=== PATIENT | male | born 1960 | race Caucasian/White ===

== ENCOUNTER 2018-06-01 11:10 | Observation (INO) ==
[2018-06-01] MEDS ORDERED: Bisacodyl 10 MG Supp RECTAL PRN (13:11)
[2018-06-01] MEDS ORDERED: Naloxone Inj 0.4 MG/ML Vial IV.PUSH PRN (13:11)
[2018-06-01] MEDS ORDERED: Acetaminophen 325 MG Tablet PO PRN (13:11)
[2018-06-01] MEDS ORDERED: Morphine Inj 4 MG/ML Vial IV.PUSH PRN (15:00)
[2018-06-01] MEDS ORDERED: Enoxaparin Inj 40 MG/0.4 ML Syringe SQ SCH (16:00)
--- NOTE | 2018-06-01 16:26 | P.HPIM ---
History of Present Illness Primary Care Physician: UNKNOWN Chief Complaint: Abdominal pain History of Present Illness: 57-year-old white male with a history of hypertension, hypothyroidism, hyperlipidemia who we presented to the emergency room in [place] for continued 3 day history of persistent epigastric abdominal pain with bandlike radiation toward the left upper abdomen area. It is associated with mild nausea however he has not had active vomiting. He reports he has had poor appetite over the past 3 days along with previous history of constipation. He reports taking laxatives 2 days ago and had a bowel movement which showed an episode of black tarry stools. Shortly after that he had some loose stools however has not had any stools today. He has not had any recent weight loss or weight he has had previous colonoscopies in the past and most recent 2-1/2 years ago which was negative. He was actually seen in the emergency room yesterday and decided to follow-up as an outpatient however due to the persistent pain and not able to get an appointment until July he represented to the emergency room for further evaluation. He denies a history of malignancy. He does report drinking alcohol on a daily basis at least 2-3 drinks. He does not routinely take aspirin and only occasionally takes Aleve for pain. - Diagnosis (1) Abdominal mass Review of Systems All other systems reviewed negative except as stated in HPI PMFSH - History History Provided By: Patient - Medical History Medical History: Medical History (Last Reviewed 06/01/18 @ 16:19 by Gwen Preciado MD) Hypercholesteremia Hypertension Hypothyroid - Surgical History Surgical History: Surgical History (Last Reviewed 06/01/18 @ 16:19 by Gwen Preciado MD) H/O arthroscopic knee surgery H/O neck surgery - Family History Family History: Family History (Last Updated 06/01/18 @ 16:20 by Gwen Preciado MD) Father Hypertension Mother Hypertension - Social History I have reviewed the patient's Social History: Yes - Tobacco History Second Hand Smoke Exposure: Yes Smoking Status: Former smoker Tobacco Type: Cigarettes - Alcohol History How Often Do You Have a Drink Containing Alcohol: 4 or more times a week - Substance Use History Substance History: No History of Abuse - Travel History History of Recent Travel: No Recent Travel in the [place] Within the Last 8 Weeks: No Recent Travel Out of the Country Within the Last 8 Weeks: No Medications and Allergies Active Medications: Active Medications Acetaminophen (Tylenol) 650 mg PO Q6HR PRN PRN Reason: PAIN SCALE 1 TO 2 Hydrocodone Bitart/Acetaminophen ([place] 5/325) 1 tab PO Q4H PRN PRN Reason: PAIN SCALE 3 TO 5 Hydrocodone Bitart/Acetaminophen ([place] 7.5/325) 1 tab PO Q4H PRN PRN Reason: PAIN SCALE 6 TO 10 Al Hydroxide/Mg Hydroxide (Milk Of Magnesia Liq) 30 ml PO Q12H PRN PRN Reason: Mild Constipation Bisacodyl (Dulcolax Supp) 10 mg RECTAL DAILY PRN PRN Reason: SEVERE CONSITIPATION Enoxaparin Sodium (Lovenox Inj) 40 mg SQ Q24H BERNARDINO Lactulose (Lactulose Liq) 30 ml PO DAILY PRN PRN Reason: SEVERE CONSITIPATION Morphine Sulfate (Morphine Inj) 4 mg IV.PUSH Q3H PRN PRN Reason: BREAKTHROUGH PAIN Naloxone HCl (Narcan Inj) 0.4 mg IV.PUSH UNSCH PRN PRN Reason: SEE LABEL COMMENTS Ondansetron HCl (Zofran Inj) 4 mg IV.PUSH Q6H PRN PRN Reason: NAUSEA OR VOMITING Sennosides (Senokot) 17.2 mg PO Q12H PRN PRN Reason: Moderate Constipation Sodium Chloride (Ns Flush) 2 ml IV.FLUSH PRN PRN PRN Reason: FLUSH AFTER USING IV ACCESS Allergies Allergy/AdvReac Type Severity Reaction Status Date / Time No Known Allergies Allergy Verified 06/01/18 11:17 Home Medications Medication Instructions Recorded Confirmed Type amlodipine-benazepril 1 cap PO DAILY 05/31/18 06/01/18 History atorvastatin 10 mg PO DAILY 05/31/18 06/01/18 History flaxseed oil 1,000 mg PO HS 05/31/18 06/01/18 History glucosamine sulfate [Glucosamine] 1,500 mg PO HS 05/31/18 06/01/18 History levothyroxine 75 mcg PO DAILY 05/31/18 06/01/18 History minocycline 100 mg PO BID 05/31/18 06/01/18 History testosterone cypionate 200 mg IM Q2W 05/31/18 06/01/18 History Exam Narrative: GENERAL: Well-nourished well-developed white male in no acute distress SKIN: Warm and dry. HEAD: Atraumatic. Normocephalic. EYES: Pupils equal and round. No scleral icterus. No injection or drainage. ENT: No nasal bleeding or discharge. Mucous membranes pink and moist. NECK: Trachea midline. No JVD. CARDIOVASCULAR: Regular rate and rhythm. RESPIRATORY: No accessory muscle use. Clear to auscultation. Breath sounds equal bilaterally. GASTROINTESTINAL: Abdomen soft, mild generalized epigastric left upper quadrant tenderness, there is no rebound guarding nondistended. Hepatic and splenic margins not palpable. Normoactive bowel sounds MUSCULOSKELETAL: Extremities without clubbing, cyanosis, or edema. No obvious deformities. NEUROLOGICAL: Awake and alert to person place time and situation. No obvious cranial nerve deficits. Motor grossly within normal limits. Five out of 5 muscle strength in the arms and legs. Normal speech. PSYCHIATRIC: Appropriate mood and affect; insight and judgment normal. Results - Labs Labs: BMP, CBC, urinalysis within normal limits. LFTs within normal limits - Imaging CT abdomen pelvis Right lobe irregular calcified mass Midline mesentery mass Caprini VTE Risk Assessment Caprini VTE Risk Assessment: Moderate/High Risk (score >= 2) Caprini Risk Assessment Model: Point Value = 1 Point Value = 2 Point Value = 3 Point Value = 5 Age 41-60 Minor surgery BMI > 25 kg/m2 Swollen legs Varicose veins or History of unexplained or recurrent spontaneous Oral contraceptives or hormone replacement Sepsis (< 1 month) Serious lung disease, including pneumonia (< 1 month) Abnormal pulmonary function Acute myocardial infarction Congestive heart failure (< 1 month) History of inflammatory bowel disease Medical patient at bed rest Age 61-74 Arthroscopic surgery Major open surgery (> 45 min) Laparoscopic surgery (> 45 min) Malignancy Confined to bed (> 72 hours) Immobilizing plaster cast Central venous access Age >= 75 History of VTE Family history of VTE Factor V Leiden Prothrombin [id number] Lupus anticoagulant Anticardiolipin antibodies Elevated serum homocysteine Heparin-induced thrombocytopenia Other congenital or acquired thrombophilia Stroke (< 1 month) Elective arthroplasty Hip, pelvis, or leg fracture Acute spinal cord injury (< 1 month) Prophylaxis Regimen: Total Risk Factor Score Risk Level Prophylaxis Regimen 0-1 Low Early ambulation 2 Moderate Order ONE of the following: *Sequential Compression Device (SCD) *Heparin 5000 units SQ BID 3-4 Higher Order ONE of the following medications: *Heparin 5000 units SQ TID *Enoxaparin/Lovenox 40 mg SQ daily (WT < 150 kg, CrCl > 30 mL/min) *Enoxaparin/Lovenox 30 mg SQ daily (WT < 150 kg, CrCl > 10-29 mL/min) *Enoxaparin/Lovenox 30 mg SQ BID (WT < 150 kg, CrCl > 30 mL/min) AND/OR *Sequential Compression Device (SCD) 5 or more Highest Order ONE of the following medications: *Heparin 5000 units SQ TID (Preferred with Epidurals) *Enoxaparin/Lovenox 40 mg SQ daily (WT < 150 kg, CrCl > 30 mL/min) *Enoxaparin/Lovenox 30 mg SQ daily (WT < 150 kg, CrCl > 10-29 mL/min) *Enoxaparin/Lovenox 30 mg SQ BID (WT < 150 kg, CrCl > 30 mL/min) AND *Sequential Compression Device (SCD) Assessment and Plan - Assessment (1) Abdominal mass Code(s): R19.00 - Intra-abdominal and pelvic swelling, mass and lump, unspecified site Status: Acute - Plan 1. Intractable abdominal pain with underlying abdominal mesentery mass and abnormal right lobe liver mass on CTplace patient observation for continued workup with GI consultation to evaluate for EGD, colonoscopy. Pain control with IV morphine as needed. Will initiate PPI due to history of alcohol use. Check CEA, CA 19/9, alpha-fetoprotein. Further recommendations per GI. 2. Hypertensionresume amlodipine and lisinopril 3. Hypothyroidismresume Synthroid 4. Hyperlipidemia resume home statin. 5. DVT prophylaxishold Lovenox due to episode of black tarry stools until active GI bleed is ruled out. (1) Abdominal mass Qualifiers: Abdominal location: unspecified location Qualified Code(s): R19.00 - Intra- abdominal and pelvic swelling, mass and lump, unspecified site
[2018-06-01] MEDS ORDERED: Magnesium Citrate Liq 300 ML Bottle PO ONE ×2 (17:25→18:30)
--- NOTE | 2018-06-01 18:09 | P.CONGI ---
History of Present Illness Consult date: 06/30/18 Consult reason: Abnormal right lobe liver mass, abdominal mesenteric mass, epigastric abdominal pain Chief complaint: Abdominal Pain and Mass History of Present Illness: This is a 57-year-old male who had been in his usual state of health up until 3 days before admission. Patient notes an epigastric abdominal pain with a tightness and radiation into the left upper abdominal area initially patient had noted some mild nausea but states no further nausea or vomiting he did note dark melena stools approximately 3 days ago but states that that is now subsided. Patient notes a history of constipation and acute onset of bloating. He did note some laxatives a couple of days ago when the melena stools were noted. Patient denies any family history of colon cancer and states he had his last colonoscopy around the first 2015 and polypectomy. Patient is positive for alcohol on a daily basis 2-3 drinks a day, does take occasional Aleve or NSAIDs. Gastroenterology was consulted to assist with patient's uncontrolled abdominal pain. CT scan recently performed showed abdominal mesenteric mass and abnormal right lobe liver mass. Discussed with patient the need for EGD and colonoscopy which is been scheduled for in the morning. Currently pain scale 10 7 out of 10, does note some diffuse generalized abdominal pain to light palpation. Currently patient denies any dysphasia or dyspepsia <Tori Garcia - Last Filed: 06/01/18 18:00> Review of Systems All other systems reviewed negative except as stated in HPI <Tori Garcia - Last Filed: 06/01/18 18:00> [facility] - History History Provided By: Patient - Medical History Medical History: Medical History (Last Reviewed 06/01/18 @ 16:19 by Gwen Preciado MD) Hypercholesteremia Hypertension Hypothyroid - Surgical History Surgical History: Surgical History (Last Reviewed 06/01/18 @ 16:19 by Gwen Preciado MD) H/O arthroscopic knee surgery H/O neck surgery - Family History Family History: Family History (Last Updated 06/01/18 @ 16:20 by Gwen Preciado MD) Father Hypertension Mother Hypertension - Tobacco History Second Hand Smoke Exposure: No Tobacco Use In Past 30 Days: No Smoking Status: Former smoker Tobacco Type: Cigarettes - Alcohol History How Often Do You Have a Drink Containing Alcohol: 4 or more times a week - Substance Use History Substance History: No History of Abuse - Travel History History of Recent Travel: No Recent Travel in the [place] Within the Last 8 Weeks: Yes Recent Travel Out of the Country Within the Last 8 Weeks: No <Tori Garcia - Last Filed: 06/01/18 18:00> - Medical History Medical History: Medical History (Last Reviewed 06/01/18 @ 16:19 by Gwen Preciado MD) Hypercholesteremia Hypertension Hypothyroid - Surgical History Surgical History: Surgical History (Last Reviewed 06/01/18 @ 16:19 by Gwen Preciado MD) H/O arthroscopic knee surgery H/O neck surgery - Family History Family History: Family History (Last Updated 06/01/18 @ 16:20 by Gwen Preciado MD) Father Hypertension Mother Hypertension <Betty Milton - Last Filed: 06/01/18 21:46> Medications and Allergies Active Medications: Active Medications Acetaminophen (Tylenol) 650 mg PO Q6HR PRN PRN Reason: PAIN SCALE 1 TO 2 Hydrocodone Bitart/Acetaminophen ([place] 5/325) 1 tab PO Q4H PRN PRN Reason: PAIN SCALE 3 TO 5 Hydrocodone Bitart/Acetaminophen ([place] 7.5/325) 1 tab PO Q4H PRN PRN Reason: PAIN SCALE 6 TO 10 Al Hydroxide/Mg Hydroxide (Milk Of Magnesia Liq) 30 ml PO Q12H PRN PRN Reason: Mild Constipation Amlodipine Besylate (Norvasc) 5 mg PO DAILY BERNARDINO Atorvastatin Calcium (Lipitor) 10 mg PO DAILY BERNARDINO Bisacodyl (Dulcolax Supp) 10 mg RECTAL DAILY PRN PRN Reason: SEVERE CONSITIPATION Enalaprilat (Vasotec Inj) 1.25 mg IV.PUSH Q6H PRN PRN Reason: SBP > 180; DBP > 100 Lactulose (Lactulose Liq) 30 ml PO DAILY PRN PRN Reason: SEVERE CONSITIPATION Levothyroxine Sodium (Synthroid) 75 mcg PO DAILY@0600 BERNARDINO Lisinopril (Prinivil) 20 mg PO DAILY BERNARDINO Magnesium Citrate (Citroma Liq) 300 ml PO ONCE ONE Stop: 06/01/18 18:31 Morphine Sulfate (Morphine Inj) 4 mg IV.PUSH Q3H PRN PRN Reason: BREAKTHROUGH PAIN Naloxone HCl (Narcan Inj) 0.4 mg IV.PUSH UNSCH PRN PRN Reason: SEE LABEL COMMENTS Ondansetron HCl (Zofran Inj) 4 mg IV.PUSH Q6H PRN PRN Reason: NAUSEA OR VOMITING Pantoprazole Sodium (Protonix) 40 mg PO DAILY [facility] Sennosides (Senokot) 17.2 mg PO Q12H PRN PRN Reason: Moderate Constipation Sodium Chloride (Ns Flush) 2 ml IV.FLUSH PRN PRN PRN Reason: FLUSH AFTER USING IV ACCESS <Tori Garcia - Last Filed: 06/01/18 18:00> Active Medications: Active Medications Acetaminophen (Tylenol) 650 mg PO Q6HR PRN PRN Reason: PAIN SCALE 1 TO 2 Hydrocodone Bitart/Acetaminophen ([place] 5/325) 1 tab PO Q4H PRN PRN Reason: PAIN SCALE 3 TO 5 Hydrocodone Bitart/Acetaminophen ([place] 7.5/325) 1 tab PO Q4H PRN PRN Reason: PAIN SCALE 6 TO 10 Last Admin: 06/01/18 20:59 Dose: 1 tab Al Hydroxide/Mg Hydroxide (Milk Of Magnesia Liq) 30 ml PO Q12H PRN PRN Reason: Mild Constipation Amlodipine Besylate (Norvasc) 5 mg PO DAILY [facility] Atorvastatin Calcium (Lipitor) 10 mg PO DAILY [facility] Bisacodyl (Dulcolax Supp) 10 mg RECTAL DAILY PRN PRN Reason: SEVERE CONSITIPATION Enalaprilat (Vasotec Inj) 1.25 mg IV.PUSH Q6H PRN PRN Reason: SBP > 180; DBP > 100 Lactulose (Lactulose Liq) 30 ml PO DAILY PRN PRN Reason: SEVERE CONSITIPATION Levothyroxine Sodium (Synthroid) 75 mcg PO DAILY@0600 [facility] Lisinopril (Prinivil) 20 mg PO DAILY [facility] Morphine Sulfate (Morphine Inj) 4 mg IV.PUSH Q3H PRN PRN Reason: BREAKTHROUGH PAIN Naloxone HCl (Narcan Inj) 0.4 mg IV.PUSH UNSCH PRN PRN Reason: SEE LABEL COMMENTS Ondansetron HCl (Zofran Inj) 4 mg IV.PUSH Q6H PRN PRN Reason: NAUSEA OR VOMITING Pantoprazole Sodium (Protonix) 40 mg PO DAILY [facility] Last Admin: 06/01/18 18:15 Dose: 40 mg Sennosides (Senokot) 17.2 mg PO Q12H PRN PRN Reason: Moderate Constipation Sodium Chloride (Ns Flush) 2 ml IV.FLUSH PRN PRN PRN Reason: FLUSH AFTER USING IV ACCESS <Betty Milton - Last Filed: 06/01/18 21:46> Allergies Allergy/AdvReac Type Severity Reaction Status Date / Time No Known Allergies Allergy Verified 06/01/18 11:17 Home Medications Medication Instructions Recorded Confirmed Type amlodipine-benazepril 1 cap PO DAILY 05/31/18 06/01/18 History atorvastatin 10 mg PO DAILY 05/31/18 06/01/18 History flaxseed oil 1,000 mg PO HS 05/31/18 06/01/18 History glucosamine sulfate [Glucosamine] 1,500 mg PO HS 05/31/18 06/01/18 History levothyroxine 75 mcg PO DAILY 05/31/18 06/01/18 History minocycline 100 mg PO BID 05/31/18 06/01/18 History testosterone cypionate 200 mg IM Q2W 05/31/18 06/01/18 History Vitamin B-12 500 mg PO DAILY 06/01/18 06/01/18 History Exam Vital signs: Vital Signs 06/01/18 16:00 Temperature 98.6 F Pulse Rate 76 Respiratory Rate 16 Blood Pressure 140/80 Pulse Oximetry 100 Intake & Output 05/31/18 06/01/18 06/01/18 18:59 06:59 18:59 Weight 82.1 kg Other: Date of Last Bowel Movement 05/29/18 Weight On Admission 82.1 kg - Constitutional mild distress - Routine HEENT Exam Head: Present: normocephalic ENT: Present: mucous membranes moist - Routine Neck Exam Present: supple - Routine Cardiovascular Exam Present: S1, S2 - Routine Abdominal Exam Present: soft (Round, tautness with generalized tenderness to even light palpation), normoactive bowel sounds, guarding - Routine Skin Exam Present: intact (10) <Tori Garcia - Last Filed: 06/01/18 18:00> Vital signs: Vital Signs 06/01/18 16:00 06/01/18 20:00 Temperature 98.6 F 98.5 F Pulse Rate 76 102 H Respiratory Rate 16 16 Blood Pressure 140/80 143/86 H Pulse Oximetry 100 99 Intake & Output 06/01/18 06/01/18 06/02/18 06:59 18:59 06:59 Weight 82.1 kg Other: # Voids 0 Date of Last Bowel Movement 05/29/18 Weight On Admission 82.1 kg <Andreas Miltonkyara Khan - Last Filed: 06/01/18 21:46> Results - Labs Labs: Laboratory Results - last 24 hr 06/01/18 06/01/18 20:14 20:14 PT 10.1 INR 1.0 Tumor Marker AFP 1.6 Carcinoembryonic Ag 2.0 <Tavares Miltonbryanna Khan - Last Filed: 06/01/18 21:46> Assessment and Plan (1) Abnormal findings on diagnostic imaging of liver Status: Acute Code(s): R93.2 - Abnormal findings on diagnostic imaging of liver and biliary tract (2) Abdominal mass Status: Acute Code(s): R19.00 - Intra-abdominal and pelvic swelling, mass and lump, unspecified site - Plan epigastric abdominal pain with a tightness and radiation into the left upper abdominal area approximately 3-4 days ago . mild nausea but states no further nausea or vomiting he did note dark melena stools approximately 3 days ago but states that that is now subsided. history of constipation and acute onset of bloating. He did note some laxatives a couple of days ago when the melena stools were noted. Patient denies any family history of colon cancer and states he had his last colonoscopy around the first 2015 and polypectomy. Patient is positive for alcohol on a daily basis 2-3 drinks a day, does take occasional Aleve or NSAIDs. Gastroenterology was consulted to assist with patient's uncontrolled abdominal pain. CT scan recently performed showed abdominal mesenteric mass and abnormal right lobe liver mass. Discussed with patient the need for EGD and colonoscopy which is been scheduled for in the morning. Currently pain scale 10 7 out of 10, does note some diffuse generalized abdominal pain to light palpation. Currently patient denies any dysphasia or dyspepsia. Labs are pending Plan Diet clear liquids tonight N.p.o. at midnight Consent for EGD colonoscopy in the a.m. Prep mag citrate and Dulcolax tablets Monitor labs with special attention to LFTs and hemoglobin PT/INR check this p.m. PPI Bowel regimen Further recommendations to follow Patient was seen per myself and Dr. Milton, note was written on his behalf <Tori Garcia - Last Filed: 06/01/18 18:00> (1) Abnormal findings on diagnostic imaging of liver Status: Acute Code(s): R93.2 - Abnormal findings on diagnostic imaging of liver and biliary tract (2) Abdominal mass Status: Acute Code(s): R19.00 - Intra-abdominal and pelvic swelling, mass and lump, unspecified site - Attending Attestation Agree with plan as above. Consent for EGD and Colonoscopy. Thank you for the consult. <Betty Milton - Last Filed: 06/01/18 21:46> <Tori Garcia - Last Filed: 06/01/18 18:00> (2) Abdominal mass Qualifiers: Abdominal location: unspecified location Qualified Code(s): R19.00 - Intra- abdominal and pelvic swelling, mass and lump, unspecified site <Betty Milton - Last Filed: 06/01/18 21:46> (2) Abdominal mass Qualifiers: Abdominal location: unspecified location Qualified Code(s): R19.00 - Intra- abdominal and pelvic swelling, mass and lump, unspecified site
[2018-06-01 21:06] LABS: Prothrombin Time 10.1 sec (9.8-11.6)
[2018-06-01 21:41] LABS: Alpha Fetoprotein Tumor Marker 1.6 ng/mL (0.5-8.0)
[2018-06-02] MEDS ORDERED: Chlorhexidine Gluconate 2% 1 Pack (2 Cloths) TOPICAL ONE (04:25)
[2018-06-02] MEDS ORDERED: Sodium Chlor 0.9% Inj 500 ML IV.SIG SCH (05:00)
[2018-06-02] MEDS: Levothyroxine 75 MCG Tablet PO SCH (05:19)
[2018-06-02 07:16] LABS: Prothrombin Time 10.2 sec (9.8-11.6)
[2018-06-02] MEDS: amLODIPine 5 MG Tablet PO SCH (09:16)
[2018-06-02] MEDS: Lisinopril 20 MG Tablet PO SCH (09:16)
[2018-06-02 09:30] LABS: Baso % (Auto) 0.3 % (0.0-2.0); Eos % (Auto) 0.4 % (0.0-4.0); Hemoglobin 15.6 gm/dL (13.0-17.0); Lymph # (Auto) 0.9 th/mm3 (1.0-4.8); Lymph % (Auto) 10.4 % (9.0-44.0); Mean Corpuscular HGB Conc 33.9 % (32.0-36.0); Mean Corpuscular Hemoglobin 32.1 pg (27.0-34.0); Mean Corpuscular Volume 94.7 fL (80.0-100.0); Mono # (Auto) 0.8 th/mm3 (0.0-0.9); Mono % (Auto) 9.5 % (0.0-8.0); Neut # (Auto) 6.7 th/mm3 (1.8-7.7); Neut % (Auto) 79.4 % (16.0-70.0); Platelet Count 269 th/mm3 (150-450); Red Blood Count 4.86 mil/mm3 (4.50-5.90); Red Cell Distribution Width 12.9 % (11.6-17.2); White Blood Count 8.4 th/mm3 (4.0-11.0)
[2018-06-02 09:58] LABS: Albumin 3.2 g/dL (3.4-5.0); Anion Gap 11 meq/L (5-15); Aspartate Aminotransferase 17 U/L (15-37); Blood Urea Nitrogen 12 mg/dL (7-18); Calcium 9.2 mg/dL (8.5-10.1); Carbon Dioxide 26.2 meq/L (21.0-32.0); Chloride 102 meq/L (98-107); Glomerular Filtration Rate Greater Than 89 mL/min (>89); Glucose,Random 74 mg/dL (74-106); Potassium 4.3 meq/L (3.5-5.1); Sodium 139 meq/L (136-145)
[2018-06-02 09:59] LABS: Alanine Aminotransferase 26 U/L (12-78)
[2018-06-02 10:01] LABS: Alkaline Phosphatase 66 U/L (45-117); Total Protein 7.2 g/dL (6.4-8.2)
--- NOTE | 2018-06-02 11:24 | P.PN ---
Subjective Interval history: Nursing denies any deterioration since last night. Patient himself still reports about the same unchanged level of pain since yesterday. Denies having any nausea. Denies having any history of abdominal masses in the past. Physical Exam Vital signs: Vital Signs 06/01/18 16:00 06/01/18 20:00 06/01/18 23:34 Temperature 98.6 F 98.5 F 98.4 F Pulse Rate 76 102 H 99 H Respiratory Rate 16 16 16 Blood Pressure 140/80 143/86 H 121/74 Pulse Oximetry 100 99 97 06/02/18 04:00 06/02/18 07:53 Temperature 98.2 F 98.1 F Pulse Rate 84 86 Respiratory Rate 16 16 Blood Pressure 137/83 137/82 Pulse Oximetry 99 96 Intake & Output 06/01/18 06/02/18 06/02/18 18:59 06:59 18:59 Weight 82.1 kg Other: # Voids 0 3 Date of Last Bowel Movement 05/29/18 06/01/18 # Bowel Movements 4 Weight On Admission 82.1 kg Narrative: Mild to moderate diffuse tenderness to palpation with no palpable abdominal masses No abdominal distention Lying in bed, awake, alert, no acute distress Results - Labs CBC & Chem 7: 06/02/18 09:00 06/02/18 09:00 Laboratory Results - last 24 hr 06/01/18 06/01/18 06/01/18 20:14 20:14 20:14 WBC RBC Hgb Hct MCV MCH MCHC RDW Plt Count MPV Neut % (Auto) Lymph % (Auto) [place] % (Auto) Eos % (Auto) Baso % (Auto) Neut # (Auto) Lymph # (Auto) [place] # (Auto) Eos # (Auto) Baso # (Auto) WBC Differential Differential Comment PT 10.1 INR 1.0 Sodium Potassium Chloride Carbon Dioxide Anion Gap BUN Creatinine Estimated GFR Random Glucose Calcium Total Bilirubin AST ALT Alkaline Phosphatase Total Protein Albumin Tumor Marker AFP 1.6 Carcinoembryonic Ag 2.0 CA 19-9 Antigen 27.3 06/02/18 06/02/18 06/02/18 06:30 09:00 09:00 WBC 8.4 RBC 4.86 Hgb 15.6 Hct 46.0 MCV 94.7 D MCH 32.1 MCHC 33.9 RDW 12.9 Plt Count 269 MPV 8.0 Neut % (Auto) 79.4 H Lymph % (Auto) 10.4 [place] % (Auto) 9.5 H Eos % (Auto) 0.4 Baso % (Auto) 0.3 Neut # (Auto) 6.7 Lymph # (Auto) 0.9 L [place] # (Auto) 0.8 Eos # (Auto) 0.0 Baso # (Auto) 0.0 WBC Differential . Differential Comment Auto diff final PT 10.2 INR 1.0 Sodium 139 Potassium 4.3 Chloride 102 Carbon Dioxide 26.2 Anion Gap 11 BUN 12 Creatinine 0.86 Estimated GFR Greater than 89 Random Glucose 74 Calcium 9.2 Total Bilirubin 0.6 AST 17 ALT 26 Alkaline Phosphatase 66 Total Protein 7.2 Albumin 3.2 L Tumor Marker AFP Carcinoembryonic Ag CA 19-9 Antigen Assessment and Plan - Plan 1. Intractable abdominal pain with underlying abdominal mesentery mass and abnormal right lobe liver mass on CT GI consultation to evaluate for EGD, colonoscopy today. Pain control with IV morphine as needed. Will initiate PPI due to history of alcohol use. Tumor markers including CEA, AFP, CA 199 all within normal limits Consulting oncology w/ ct guided bx of liver lesion for emely 2. Hypertension amlodipine and lisinopril 3. Hypothyroidism Synthroid 4. Hyperlipidemia home statin. 5. DVT prophylaxishold Lovenox due to episode of black tarry stools until active GI bleed is ruled out.
--- NOTE | 2018-06-02 13:43 | GIPROC ---
[facility] [address] [facility]. [facility], [address] EGD PROCEDURE REPORT EXAM DATE: 06/02/2018 PATIENT NAME: Geovani Joseph MR #: [id number] BIRTHDATE: 1960 ATTENDING: Betty Milton MD ORDER #: [id number] INVESTIGATIONS DIRECTOR: Gloria Forte and Wily Hugo STATUS: inpatient INDICATIONS: The patient is a 57 yr old male here for an EGD due to anemia PROCEDURE PERFORMED: EGD w/ biopsy MEDICATIONS: None and Per Anesthesia. TOPICAL ANESTHETIC: none CONSENT: The patient understands the risks and benefits of the procedure and understands that these risks include, but are not limited to: sedation, allergic reaction, infection, perforation and/or bleeding. Alternative means of evaluation and treatment include, among others: physical exam, x-rays, and/or surgical intervention. The patient elects to proceed with this endoscopic procedure. medical equipment was checked for proper function. Hand hygiene and appropriate measures for infection prevention was taken. After the risks, benefits and alternatives of the procedure were thoroughly explained, Informed consent was verified, confirmed and timeout was successfully executed by the treatment team. The patient was anesthetized with topical anesthesia and the EC-[id number] (Pedi C) endoscope was introduced through the mouth and advanced to the second portion of the duodenum. Retroflexion was performed and was normal The gastroscope was then slowly withdrawn and removed. ESOPHAGUS: The mucosa of the esophagus appeared normal. STOMACH: Multiple medium sized non-bleeding, linear, shallow and clean-based ulcers were found in the gastric antrum. Biopsies were taken at edge of the ulcers and at the center of the ulcers. DUODENUM: The duodenal mucosa appeared normal in the duodenal bulb, 2nd part duodenum, and 3rd part duodenum. ADVERSE EVENTS: There were no complications. IMPRESSIONS: 1. The esophagus appeared normal 2. Multiple medium sized ulcers were found in the gastric antrum; biopsies were taken 3. Normal duodenal mucosa in the duodenal bulb, 2nd part duodenum, and 3rd part duodenum 4. Retroflexion was performed and was normal RECOMMENDATIONS: 1. Await biopsy results. Biopsy results will not be ready for 7-10 days. If you don't hear from us in two weeks, call our office for biopsy results. 2. Continue PPI PATIENT CONDITION: stable DISPOSITION: Observation REPEAT EXAM: NONE Betty Milton MD eSigned: Betty Milton MD 06/02/2018 1:43 PM cc: PATIENT NAME: Geovani Joseph MR#: [id number]
--- NOTE | 2018-06-02 13:48 | GIPROC ---
[facility] [address] [facility]. [facility], [address] COLONOSCOPY PROCEDURE REPORT EXAM DATE: 06/02/2018 PATIENT NAME: Geovani Joseph MR #: [id number] BIRTHDATE: 1960 ENDOSCOPIST: Betty Milton MD ORDER #: [id number] VERIFICATION MANAGER: Gloria Forte and Wily Hugo STATUS: inpatient INDICATIONS: The patient is a 57 yr old male here for a colonoscopy due to anemia, non-specific PROCEDURE PERFORMED: Colonoscopy, diagnostic MEDICATIONS: None and Per Anesthesia. PREP QUALITY: fair PREP TYPE:Magnesium Citrate ESTIMATED BLOOD LOSS: None CONSENT: The patient understands the risks and benefits of the procedure and understands that these risks include, but are not limited to: sedation, allergic reaction, infection, perforation and/or bleeding. Alternative means of evaluation and treatment include, among others: physical exam, x-rays, and/or surgical intervention. The patient elects to proceed with this endoscopic procedure. medical equipment was checked for proper function. Hand hygiene and appropriate measures for infection prevention was taken. After the risks, benefits and alternatives of the procedure were thoroughly explained, Informed consent was verified, confirmed and timeout was successfully executed by the treatment team. A digital exam revealed no abnormalities of the rectum The Pentax EC-[id number] endoscope was introduced through the anus and advanced to the cecum, which was identified by both the appendix and ileocecal valve. The instrument was then slowly withdrawn as the colon was fully examined. COLON FINDINGS: Diverticulum was found in the sigmoid colon and descending colon. The opening was large. Retroflexed views revealed internal hemorrhoids and Retroflexed views revealed small internal hemorrhoids The scope was then completely withdrawn from the patient and the procedure terminated. PROCEDURE WITHDRAWAL TIME:8minutes ADVERSE EVENTS: There were no complications. IMPRESSIONS: 1. Diverticulum in the sigmoid colon and descending colon 2. Retroflexed views revealed internal hemorrhoids RECOMMENDATIONS: 1. High fiber diet. Avoid nuts, seeds, and popcorn. Chew your food well. 2. Continue surveillance RECALL: 1. NONE 2. Return 5 years Colonoscopy Betty Milton MD eSigned: Betty Milton MD 06/02/2018 1:47 PM cc:
[2018-06-02] MEDS ORDERED: fentaNYL Citrate Inj 100 MCG/2 ML Ampul ONE (14:12)
[2018-06-02] MEDS ORDERED: Enoxaparin Inj 40 MG/0.4 ML Syringe SQ ONE (19:00)
--- NOTE | 2018-06-02 21:51 | MB ---
cc: Donato Araiza MD, Hammad M MD DATE: 06/02/2018 ATTENDING PHYSICIAN: Jose Walton MD REASON FOR CONSULTATION: Oncology consulted to render an opinion regarding a patient with an abdominal mass. HISTORY OF PRESENT ILLNESS: The patient is a very pleasant 57-year-old male who presented to the emergency room with complaints of abdominal pain. He states that he was in his usual state of health this morning. He was at work and he developed acute pain right under his ribcage. He denies any nausea or vomiting. He has a decreased appetite. He noted some black stool on Friday, but he took Pepto-Bismol on Friday. He denies any fever or chills. He has lost some weight. He denies any chest pain, shortness of breath or cough. He has no dysuria or hematuria. He denies any bone pain. He had a mild headache this morning. In the emergency room, he had a CT scan done which showed a mass in the anterior mesentery measuring 5.9 cm. There was also a right hepatic lobe calcified mass. PAST MEDICAL HISTORY: 1. Hypertension. 2. Hypothyroidism. 3. Hyperlipidemia. PAST SURGICAL HISTORY: 1. Colonoscopy about 2.5 years ago. 2. Arthroscopic knee surgery 3 times. 3. Neck surgery. 4. Left arm surgery to repair a tendon. FAMILY HISTORY: Mother had breast cancer. Father is healthy. His 4 siblings are healthy. He has no children. SOCIAL HISTORY: He smoked a pack a day for about 10-15 years, quit about 10 years ago. He drinks about 2 drinks a day. ALLERGIES: NO KNOWN DRUG ALLERGIES. MEDICATIONS: 1. Norvasc. 2. Lipitor. 3. Synthroid. 4. Lisinopril. 5. Protonix. REVIEW OF SYSTEMS: CONSTITUTIONAL: As above. EYES: Negative. ENT: Negative. CARDIOVASCULAR: No chest pressure or palpitations. RESPIRATORY: No shortness of breath or cough. GASTROINTESTINAL: As above. GENITOURINARY: Negative. MUSCULOSKELETAL: Negative. HEMATOLOGIC: Negative. ENDOCRINE: Negative. DERMATOLOGIC: Negative. PSYCHIATRIC: Negative. NEUROLOGIC: Negative. PHYSICAL EXAMINATION: VITAL SIGNS: Temperature 98.3, blood pressure 119/70, O2 saturation 94%. GENERAL: He is alert and oriented x 3, in no acute distress. HEENT: Atraumatic, normocephalic. Pupils are equal, round and reactive to light. Extraocular muscles are intact. No scleral icterus. Oropharynx with dry mucosa. No lesion, no thrush, no mucositis. NECK: No thyromegaly, no palpable mass. LYMPHATIC: No palpable cervical, clavicular, axillary or inguinal lymph nodes. CARDIOVASCULAR: S1, S2. No murmurs. LUNGS: Clear to auscultation without wheezing or rhonchi. ABDOMEN: Soft, tender in the upper abdomen. No rebound, no rigidity. Positive bowel sounds. EXTREMITIES: No cyanosis, clubbing or edema. BACK: No paravertebral tenderness. SKIN: No rash or petechiae. NEUROLOGIC: Nonfocal. LABORATORY DATA: Dated 06/02/2018 was reviewed. ASSESSMENT: 1. Large mesenteric mass. CT showed a 5.9 x 5.9 x 5.3 cm mass in the anterior mesentery. This is contiguous with an adjacent small bowel loop, but appeared to be separate from the small bowel or colon. The remainder of the mesentery was unremarkable. He also has an irregular calcified mass in the right hepatic lobe. The patient denies ever having any liver mass and never had any kind of surgical procedure done to the liver. He had esophagogastroduodenoscopy which showed multiple medium sized ulcers but no masses. Biopsy is pending. He also had colonoscopy which showed only diverticula, but no mass noted. Tumor markers, alpha fetoprotein, CEA, CA 19-9 were all normal. We will need to biopsy the mesenteric mass. We will also need to consider getting a biopsy of the right hepatic lobe mass also. 2. Abdominal pain, which could be due to the mesenteric mass or the ulcers. 3. Hypertension. 4. Hypothyroidism. 5. Hyperlipidemia. RECOMMENDATIONS: We will consult radiology to biopsy the mesenteric mass. Further recommendations will depend on the tissue diagnosis. Thank you, Dr. Walton, for asking me to see this patient. MD KIRSTEN Shi/janeth , 08:52 PM , 09:04 PM MIRTA
[2018-06-03] MEDS: Levothyroxine 75 MCG Tablet PO SCH (06:24)
[2018-06-03] MEDS: amLODIPine 5 MG Tablet PO SCH (09:26)
[2018-06-03] MEDS: Lisinopril 20 MG Tablet PO SCH (09:26)
--- NOTE | 2018-06-03 09:58 | P.PNGI ---
Subjective Interval history: Pt resting in bed. States at present abdominal pain is well controlled. Denies nausea, vomiting. <Zuleima Grover - Last Filed: 06/03/18 09:55> Physical Exam Vital signs: Vital Signs 06/02/18 13:50 06/02/18 19:40 06/02/18 23:52 Temperature 97.5 F L 98.3 F 98.8 F Pulse Rate 90 94 H 84 Respiratory Rate 16 17 17 Blood Pressure 107/65 119/70 148/83 H Pulse Oximetry 94 L 94 L 94 L 06/03/18 00:45 06/03/18 04:00 06/03/18 07:31 Temperature 98.7 F 98.8 F Pulse Rate 74 82 Respiratory Rate 21 16 16 Blood Pressure 130/74 120/76 Pulse Oximetry 97 96 Intake & Output 06/02/18 06/03/18 06/03/18 18:59 06:59 18:59 Weight 82.1 kg Other: Date of Last Bowel Movement 06/01/18 - Constitutional no acute distress - Routine HEENT Exam Head: Present: normocephalic, atraumatic - Routine Respiratory Exam Absent: accessory muscle use - Routine Cardiovascular Exam Present: RRR - Routine Abdominal Exam Present: soft, normoactive bowel sounds, tenderness, distended - Routine Neurological Exam Present: alert, oriented X3 <Zuleima Grover - Last Filed: 06/03/18 09:55> Vital signs: Vital Signs 06/02/18 13:50 06/02/18 19:40 06/02/18 23:52 Temperature 97.5 F L 98.3 F 98.8 F Pulse Rate 90 94 H 84 Respiratory Rate 16 17 17 Blood Pressure 107/65 119/70 148/83 H Pulse Oximetry 94 L 94 L 94 L 06/03/18 00:45 06/03/18 04:00 06/03/18 07:31 Temperature 98.7 F 98.8 F Pulse Rate 74 82 Respiratory Rate 21 16 16 Blood Pressure 130/74 120/76 Pulse Oximetry 97 96 Intake & Output 06/02/18 06/03/18 06/03/18 18:59 06:59 18:59 Weight 82.1 kg Other: Date of Last Bowel Movement 06/01/18 <Betty Milton - Last Filed: 06/03/18 14:43> Results - Labs CBC & Chem 7: 06/02/18 09:00 06/02/18 09:00 Laboratory Results - last 24 hr 06/02/18 09:00 Sodium 139 Potassium 4.3 Chloride 102 Carbon Dioxide 26.2 Anion Gap 11 BUN 12 Creatinine 0.86 Estimated GFR Greater than 89 Random Glucose 74 Calcium 9.2 Total Bilirubin 0.6 AST 17 ALT 26 Alkaline Phosphatase 66 Total Protein 7.2 Albumin 3.2 L <Zuleima Grover - Last Filed: 06/03/18 09:55> - Labs CBC & Chem 7: 06/02/18 09:00 06/02/18 09:00 <Betty Milton - Last Filed: 06/03/18 14:43> Assessment and Plan (1) Abnormal findings on diagnostic imaging of liver Status: Acute Code(s): R93.2 - Abnormal findings on diagnostic imaging of liver and biliary tract (2) Abdominal mass Status: Inactive Code(s): R19.00 - Intra-abdominal and pelvic swelling, mass and lump, unspecified site - Plan epigastric abdominal pain with a tightness and radiation into the left upper abdominal area approximately 3-4 days ago . mild nausea but states no further nausea or vomiting he did note dark melena stools approximately 3 days ago but states that that is now subsided. history of constipation and acute onset of bloating. He did note some laxatives a couple of days ago when the melena stools were noted. Patient denies any family history of colon cancer and states he had his last colonoscopy around the first 2015 and polypectomy. Patient is positive for alcohol on a daily basis 2-3 drinks a day, does take occasional Aleve or NSAIDs. Gastroenterology was consulted to assist with patient's uncontrolled abdominal pain. CT scan recently performed showed abdominal mesenteric mass and abnormal right lobe liver mass. Discussed with patient the need for EGD and colonoscopy which is been scheduled for in the morning. Currently pain scale 10 7 out of 10, does note some diffuse generalized abdominal pain to light palpation. Currently patient denies any dysphasia or dyspepsia. Labs are pending (06/03) S/P EGD and colonoscopy yesterday, findings as below. Evaluated by oncology who is planning for biopsy of abdominal mass. EGD --> Normal esophagus. Multiple medium sized ulcers in the gastric antrum. Normal duodenal mucosa in the duodenal bulb, 2nd part duodenum, and 3rd part duodenum Colonoscopy --> Diverticulum in the sigmoid colon and descending colon. Retroflexed views revealed internal hemorrhoids Plan NOLAN EGD biopsy pending Protonix Abdominal mass per oncology Our service will sign off, please reconsult as needed Have pt follow up with GI after DC Pt has been seen and examined by myself and Dr. Milton and this note is written on his behalf <Zuleima Grover - Last Filed: 06/03/18 09:55> (1) Abnormal findings on diagnostic imaging of liver Status: Acute Code(s): R93.2 - Abnormal findings on diagnostic imaging of liver and biliary tract (2) Abdominal mass Status: Inactive Code(s): R19.00 - Intra-abdominal and pelvic swelling, mass and lump, unspecified site - Attending Attestation Agree with above assessment and plan, to consider SBFT, no primary lesion seen in the EGD or Colonoscopy. Further recommendations to follow as needed. <Betty Milton - Last Filed: 06/03/18 14:43> <Zuleima Grover - Last Filed: 06/03/18 09:55> (2) Abdominal mass Qualifiers: Abdominal location: unspecified location Qualified Code(s): R19.00 - Intra- abdominal and pelvic swelling, mass and lump, unspecified site <Betty Milton - Last Filed: 06/03/18 14:43> (2) Abdominal mass Qualifiers: Abdominal location: unspecified location Qualified Code(s): R19.00 - Intra- abdominal and pelvic swelling, mass and lump, unspecified site
[2018-06-03] MEDS ORDERED: Gadobutrol PF 10 MMOL/10 ML Vial (for RAD) IV.SIG ONE (12:48)
--- NOTE | 2018-06-03 12:56 | MR ---
EXAM DATE: 06/03/2018 12:48 PM EDT AGE/SEX: 57 years / Male INDICATIONS: Abnormal CT scan. CLINICAL DATA: This is the patient's subsequent encounter. Patient reports that signs and symptoms h ave been present for 2 days and indicates a pain score of 2/10. MEDICAL/SURGICAL HISTORY: Hypertension. Hypercholesterolemia. Hypothyroidism. Fusion, cervica l. knee surgery COMPARISON: [facility], CT ABDOMEN & PELVIS W/O CONTRAST, 05/31/2018. . TECHNIQUE: Multiplanar, multisequence images of the abdomen were obtained prior to and following adm inistration of 8 ml Gadavist (gadobutrol) contrast as a single exam dose with dynamic multiphase tech nique. FINDINGS: Pancreas, adrenals, spleen, gallbladder and visualized portions right kidney unremarkable. There is a simple cyst left mid to lower pole kidney measuring 1.2 cm. There is a circumscribed heterogeneous s ignal intensity mass in the mesentery just to the left of midline and incompletely imaged on this idania dy. Measures up to 6.1 cm in transverse dimension. It is hyperintense on T2-weighted images. In the p osterior right hepatic lobe a lobulated mass is seen corresponding to the partially calcified mass no marcello on the recent CT. Measures 3.6 x 2.7 cm in transverse and AP dimension. No appreciable internal e nhancement is identified. The mesenteric mass demonstrates avid enhancement of the lesion as well as a small cystic nonenhancing component. CONCLUSION: 1. There is a mass in the right hepatic lobe again noted. The appearance is nonspecific. 2. Mesenteric mass is identified with avid enhancement. Electronically signed by: Geoffrey Singletary MD 06/03/2018 12:55 PM EDT
[2018-06-03] MEDS ORDERED: fentaNYL Citrate Inj 100 MCG/2 ML Ampul ONE (14:59)
--- NOTE | 2018-06-03 15:09 | ECG ---
Date Performed: 06/02/2018 Time Performed: 12:06:05 PTAGE: 57 years EKG: Sinus rhythm WITH OCCASIONAL VENTRICULAR PREMATURE COMPLEXES BORDERLINE ECG NO PREVIOUS TRACING DOCTOR: Yung Chanel Interpretating Date/Time 06/03/2018 15:07:16
--- NOTE | 2018-06-03 15:43 | P.RAD ---
Post CT Procedure Prog Note - Pre Procedure Diagnosis (1) Liver mass, right lobe - Post Procedure Diagnosis (1) Liver mass, right lobe - Procedure Information Procedure Date: 06/03/18 Supervising Radiologist: Alfonso Badillo Jr, MD Proceduralist/Assist: Arlene Anesthesia: Conscious Sedation - Plan of Activity Patient to Unit: ROPU Patient condition: Good See PACS Report for procedural detail/treatment. Biopsy CT right Liver Specimen: Core Biopsy Findings: Partially calcified liver mass and mesenteric mass CT guided core sampling of liver mass 3 samples taken. No hemorrhage on post images.
--- NOTE | 2018-06-03 16:33 | P.DS ---
Date of admission: 06/01/18 15:30 Primary care physician: UNKNOWN Brief History from admission: 57-year-old white male with a history of hypertension, hypothyroidism, hyperlipidemia who we presented to the emergency room in [place] for continued 3 day history of persistent epigastric abdominal pain with bandlike radiation toward the left upper abdomen area. It is associated with mild nausea however he has not had active vomiting. He reports he has had poor appetite over the past 3 days along with previous history of constipation. He reports taking laxatives 2 days ago and had a bowel movement which showed an episode of black tarry stools. Shortly after that he had some loose stools however has not had any stools today. He has not had any recent weight loss or weight he has had previous colonoscopies in the past and most recent 2-1/2 years ago which was negative. He was actually seen in the emergency room yesterday and decided to follow-up as an outpatient however due to the persistent pain and not able to get an appointment until July he represented to the emergency room for further evaluation. He denies a history of malignancy. He does report drinking alcohol on a daily basis at least 2-3 drinks. He does not routinely take aspirin and only occasionally takes Aleve for pain. DS: Medications - Discharge Medications Prescriptions: hydrocodone-acetaminophen 1 tab PO Q8HR PRN #21 tab PRN Reason: Acute Pain pantoprazole 40 mg PO BID #60 tab DS: Summary Hospital Course: Patient was admitted, started on pain medication. Underwent EGD and colonoscopy , which only showed a few nonbleeding gastric ulcers (that were biopsied) but no masses were found otherwise. Oncology was consulted, patient underwent CT- guided biopsy of hepatic mass. Pain remained stable after procedure. Patient was counseled to follow-up with oncology outpatient for biopsy results and further management. Patient has met maximal benefit from hospitalization and is clinically stable for discharge. [employer] Prescription Drug Monitoring Database has been queried and verified prior to prescribing the controlled subsection. Patient is having significant pain caused by liver mass which will last more than 3 days. Trial of alternative treatment options other than prescribed opioids has not helped. I believe that it is medically necessary to treat the patients pain because it is affecting patients ability to function at baseline. - Time Spent with Patient Total time spent providing and/or coordinating discharge services: Less than 30 minutes - Quality: VTE Deep Vein Thrombosis/Pulmonary Embolism Present on Admission: No Exam Vital signs: Vital Signs 06/02/18 19:40 06/02/18 23:52 06/03/18 00:45 Temperature 98.3 F 98.8 F Pulse Rate 94 H 84 Respiratory Rate 17 17 21 Blood Pressure 119/70 148/83 H Pulse Oximetry 94 L 94 L 06/03/18 04:00 06/03/18 07:31 06/03/18 11:22 Temperature 98.7 F 98.8 F 98.6 F Pulse Rate 74 82 90 Respiratory Rate 16 16 16 Blood Pressure 130/74 120/76 128/77 Pulse Oximetry 97 96 97 06/03/18 15:45 06/03/18 16:00 06/03/18 16:15 Temperature 98.9 F Pulse Rate 80 80 81 Respiratory Rate 20 20 20 Blood Pressure 100/63 94/55 L 98/52 L Pulse Oximetry 90 L 94 L 94 L Intake & Output 06/02/18 06/03/18 06/03/18 18:59 06:59 18:59 Weight 82.1 kg Other: Date of Last Bowel Movement 06/01/18 06/02/18 Narrative: lying in bed, Awake, alert, NAD abd soft, ND Results Procedures completed during hospitalization: ct guided bx of liver EGD and colonoscopy bx of ulcer - Impressions ITS Impressions Abdomen MRI 06/03/18 00:00 Pancreas, adrenals, spleen, gallbladder and visualized portions right kidney unremarkable. There is a simple cyst left mid to lower pole kidney measuring 1.2 cm. There is a circumscribed heterogeneous signal intensity mass in the mesentery just to the left of midline and incompletely imaged on this study. Measures up to 6.1 cm in transverse dimension. It is hyperintense on T2- weighted images. In the posterior right hepatic lobe a lobulated mass is seen corresponding to the partially calcified mass noted on the recent CT. Measures 3.6 x 2.7 cm in transverse and AP dimension. No appreciable internal enhancement is identified. The mesenteric mass demonstrates avid enhancement of the lesion as well as a small cystic nonenhancing component. CONCLUSION: 1. There is a mass in the right hepatic lobe again noted. The appearance is nonspecific. 2. Mesenteric mass is identified with avid enhancement. Discharge Plan - Discharge Disposition Patient Disposition: 01 Discharge Home - Discharge Condition Condition: Stable - Discharge Order Discharge Orders: Discharge Order (Routine); Ordered 06/03/18 Ordered By: Jose Walton - Physicians Team Primary Care Provider: UNKNOWN, Attending Provider: Jose Walton Other Providers: Betty Milton MD ; [employer],Insurance ; Donato Araiza MD - Rxs /Orders / Referrals /Forms Prescriptions: New hydrocodone-acetaminophen 10-325 mg Tablet 1 tab PO Q8HR PRN (Reason: Acute Pain) Qty: 21 RF: 0 pantoprazole 40 mg Tablet,Delayed Release (Dr/Ec) 40 mg PO BID Qty: 60 RF: 0 Continue amlodipine-benazepril 5-20 mg Capsule 1 cap PO DAILY atorvastatin 10 mg Tablet 10 mg PO DAILY flaxseed oil 1,000 mg Capsule 1,000 mg PO HS glucosamine sulfate [Glucosamine] 500 mg Tablet 1,500 mg PO HS levothyroxine 75 mcg Tablet 75 mcg PO DAILY minocycline 100 mg Capsule 100 mg PO BID testosterone cypionate 200 mg/mL Oil 200 mg IM Q2W Vitamin B-12 500 MG 500 mg PO DAILY Referrals: Donato Araiza MD [Physician] - See Instructions (10 days) UNKNOWN, [Primary Care Provider] - See Instructions Forms: Work Release/Restrictions - Discharge Instructions Patient Printed Instructions: Hydrocodone/Acetaminophen (By mouth), Pantoprazole (By mouth), Percutaneous Liver Biopsy (DC), Colonoscopy (DC) - Post Discharge Care Plan Care Plan Goals: Your Health Problems: Goals to Promote Your Health: * To prevent worsening of your condition * To maintain your health at the optimal level Directions to Meet Your Goals: * Take your medications as prescribed * Follow your dietary instruction * Follow activity as directed * Keep your appointments as scheduled * Take your immunizations and boosters as scheduled * If your symptoms worsen call your PCP * If no PCP go to Urgent Care or Emergency Room Smoking is dangerous to your health. Avoid second hand smoke. You may reach the 24-hour crisis hotline for domestic abuse at .
--- NOTE | 2018-06-03 16:51 | CT ---
EXAM DATE: 06/03/2018 4:04 PM EDT AGE/SEX: 57 years / Male INDICATIONS: Liver mass. CLINICAL DATA: This is the patient's initial encounter. Patient reports that signs and symptoms have been present for 1 day and indicates a pain score of 0/10. MEDICAL/SURGICAL HISTORY: Hypertension. None. COMPARISON: DL, CT ABDOMEN & PELVIS W/O CONTRAST, 05/31/2018. . BIOPSY SITE: Right liver MEDICATION(S): 4mg midazolam (Versed) IV 100mcg fentanyl (Sublimaze) IV DEVICE(S): 17 gauge Introducer 18 gauge BARD biopsy needle Three . . PROCEDURE: CT guided Right liver biopsy Prior to the procedure informed consent was obtained. Any appropriate prior imaging studies were rev iewed. The patient's MRI of the abdomen 06/03/[address] of the abdomen and pelvis 05/31/2018 reviewed. The patient's partially calcified hepatic mass was targeted during the biopsy. Using automated exposure control and adjustment of the mA and/or kV according to patient size, radiat ion dose was kept as low as reasonably achievable to obtain optimal diagnostic quality images. DICOM format image data is available electronically for review and comparison. The site was prepped in a sterile fashion. Full sterile technique was used, including cap, mask, ryan rile gloves and gown and a large sterile sheet. Hand hygiene and 2% chlorhexidine and/or betadine/al cohol prep was utilized per protocol for cutaneous antisepsis. The skin and subcutaneous tissues wer e infiltrated with local anesthetic solution. With CT guidance the intrahepatic mass was localized. Biopsy was performed using the prescribed needl e as above. A total of 3 core samples were obtained. Adequate hemostasis was obtained with compressi on at the puncture site. Follow-up CT scan reveals no hemorrhage. The patient tolerated the procedure well and there were no complications. The patient was returned to the Radiology Outpatient Unit in stable condition. CONCLUSION: 1. Uncomplicated CT guided core biopsy of a hepatic mass. Electronically signed by: Alfonso Badillo MD 06/03/2018 4:50 PM EDT
--- NOTE | 2018-06-03 17:51 | P.PNONC ---
Subjective Interval history: Late entry. I saw patient in the morning. Patient still complaining of abdominal pain. He denies any chest pain or shortness of breath. He is anxious about a biopsy. Objective Vital Signs/Intake & Output: Vital Signs 06/02/18 19:40 06/02/18 23:52 06/03/18 00:45 Temperature 98.3 F 98.8 F Pulse Rate 94 H 84 Respiratory Rate 17 17 21 Blood Pressure 119/70 148/83 H Pulse Oximetry 94 L 94 L 06/03/18 04:00 06/03/18 07:31 06/03/18 11:22 Temperature 98.7 F 98.8 F 98.6 F Pulse Rate 74 82 90 Respiratory Rate 16 16 16 Blood Pressure 130/74 120/76 128/77 Pulse Oximetry 97 96 97 06/03/18 15:45 06/03/18 16:00 06/03/18 16:15 Temperature 98.9 F Pulse Rate 80 80 81 Respiratory Rate 20 20 20 Blood Pressure 100/63 94/55 L 98/52 L Pulse Oximetry 90 L 94 L 94 L 06/03/18 16:46 Temperature Pulse Rate 79 Respiratory Rate 20 Blood Pressure 96/55 L Pulse Oximetry 94 L Intake & Output 06/02/18 06/03/18 06/03/18 18:59 06:59 18:59 Weight 82.1 kg Other: Date of Last Bowel Movement 06/01/18 06/02/18 Result Diagrams: 06/02/18 09:00 06/02/18 09:00 Imaging Studies: Impressions Abdomen MRI 06/03/18 00:00 Pancreas, adrenals, spleen, gallbladder and visualized portions right kidney unremarkable. There is a simple cyst left mid to lower pole kidney measuring 1.2 cm. There is a circumscribed heterogeneous signal intensity mass in the mesentery just to the left of midline and incompletely imaged on this study. Measures up to 6.1 cm in transverse dimension. It is hyperintense on T2- weighted images. In the posterior right hepatic lobe a lobulated mass is seen corresponding to the partially calcified mass noted on the recent CT. Measures 3.6 x 2.7 cm in transverse and AP dimension. No appreciable internal enhancement is identified. The mesenteric mass demonstrates avid enhancement of the lesion as well as a small cystic nonenhancing component. CONCLUSION: 1. There is a mass in the right hepatic lobe again noted. The appearance is nonspecific. 2. Mesenteric mass is identified with avid enhancement. Liver Biopsy CT 06/03/18 00:00 CONCLUSION: 1. Uncomplicated CT guided core biopsy of a hepatic mass. Medications: Active Medications Generic Name Dose Route Start Last Admin Trade Name Freq PRN Reason Stop Dose Admin Hydrocodone Bitart/Acetaminophen 1 tab 06/01/18 15:00 06/03/18 00:15 [place] 7.5/325 PO 1 tab Q4H PRN Administration PAIN SCALE 6 TO 10 Amlodipine Besylate 5 mg 06/02/18 09:00 06/03/18 09:26 Norvasc PO 5 mg DAILY BERNARDINO Administration Atorvastatin Calcium 10 mg 06/02/18 09:00 06/03/18 09:26 Lipitor PO 10 mg DAILY BERNARDINO Administration Sodium Chloride 500 mls @ 30 mls/hr 06/02/18 05:00 06/02/18 07:17 Ns Inj IV.SIG Not Given .Q10H BERNARDINO Levothyroxine Sodium 75 mcg 06/02/18 06:00 06/03/18 06:24 Synthroid PO 75 mcg DAILY@0600 BERNARDINO Administration Lisinopril 20 mg 06/02/18 09:00 06/03/18 09:26 Prinivil PO 20 mg DAILY BERNARDINO Administration Pantoprazole Sodium 40 mg 06/01/18 17:00 06/03/18 09:26 Protonix PO 40 mg DAILY BERNARDINO Administration Objective Remarks: GENERAL: Well-nourished, well-developed patient. SKIN: Warm and dry. HEAD: Normocephalic. EYES: No scleral icterus. No injection or drainage. NECK: Supple, trachea midline. No JVD or lymphadenopathy. LYMPHATIC: No adenopathy. CARDIOVASCULAR: Regular rate and rhythm without murmurs. RESPIRATORY: Breath sounds equal bilaterally. No accessory muscle use. GASTROINTESTINAL: Abdomen soft, tender in the upper abdomen. nondistended. Positive bowel sounds. EXTREMITIES: No cyanosis, or edema. MUSCULOSKELETAL: Adequate muscle tone. NEUROLOGICAL: No obvious focal deficit. Awake, alert, and oriented x3. PSYCHIATRIC: Appropriate mood and affect; insight and judgment normal. Assessment/Plan (1) Liver mass, right lobe Code(s): R16.0 - Hepatomegaly, not elsewhere classified Status: Acute - Plan 1. Large mesenteric mass. CT showed a 5.9 x 5.9 x 5.3 cm mass in the anterior mesentery. This is contiguous with an adjacent small bowel loop, but appeared to be separate from the small bowel or colon. The remainder of the mesentery was unremarkable. He also has an irregular calcified mass in the right hepatic lobe. The patient denies ever having any liver mass and never had any kind of surgical procedure done to the liver. He had esophagogastroduodenoscopy which showed multiple medium sized ulcers but no masses. Biopsy is pending. He also had colonoscopy which showed only diverticula, but no mass noted. Tumor markers, alpha fetoprotein, CEA, CA 19-9 were all normal. June 03, 2018. Awaiting biopsy of the abdominal mass. 2. Abdominal pain, which could be due to the mesenteric mass or the ulcers. His symptoms are stable. RECOMMENDATIONS: Await biopsy of the abdominal mass. Further recommendations will depend on the tissue diagnosis.
== END 2018-06-03 22:03 | disposition home or self-care (01) ==
LOC: NEPFCDU 11:10 → NEDDLT 11:10 → UNDODISOB 06-03 11:31
PROVIDERS: ADMIT Hospitalist; ATTEND Hospitalist
PROC: PANENDO (2018-06-02 12:54)
PROC: COLONOS (2018-06-02 12:54)

== ENCOUNTER 2018-06-15 06:10 | Inpatient (IN) ==
[2018-06-15] MEDS ORDERED: Sod Chloride 0.9% Inj 1,000 ML IV.SIG SCH (07:15)
[2018-06-15] MEDS ORDERED: Lidocaine 1%/Epinephrine 1:100,000 Inj 20 ML Vial ONE (07:34)
[2018-06-15] MEDS ORDERED: fentaNYL Citrate Inj 250 MCG/5 ML Ampul ONE (07:56)
[2018-06-15] MEDS ORDERED: Acetaminophen 325 MG Tablet PO PRN (13:23)
--- NOTE | 2018-06-15 13:23 | P.HPIM ---
History of Present Illness Primary Care Physician: UNKNOWN Chief Complaint: abdominal pain History of Present Illness: patient is a 57 y/o male with history of hypertension, hypothyroidism, dyslipidemia, who underwent abdominal mass biopsy earlier today. he says that he 's had generalized abdominal pain for almost two weeks. he 's had on and off nausea but with no emesis. he says that eating makes the pain worse. he's lost about nine pounds within that time frame.he denies fever but had chills and night sweats. he was admitted to this hospital about ten days ago and was evaluated by GI and underwent EGD/colonoscopy and liver biopsy. he was found to have non-bleeding gastric ulcers and pathology of the liver biopsy showed hemangioma. he was found to have a mesentric mass for which he was seen by last week and was sent to IR today for the biopsy. as per d/w today, at the time of the biopsy ' pus was drained from the mass and a drain was placed in'. Review of Systems All other systems reviewed negative except as stated in HPI PMFSH - History History Provided By: Patient - Medical History Medical History: Medical History (Last Updated 06/15/18 @ 07:09 by Mariaelena Green) Abdominal mass Benign liver cyst Hypercholesteremia Hypertension Hypothyroid - Surgical History Surgical History: Surgical History (Last Reviewed 06/01/18 @ 16:19 by Gwen Preciado MD) H/O arthroscopic knee surgery H/O neck surgery - Family History Family History: Family History (Last Updated 06/01/18 @ 16:20 by Gwen Preciado MD) Father Hypertension Mother Hypertension - Tobacco History Second Hand Smoke Exposure: No Tobacco Use In Past 30 Days: No Smoking Status: Former smoker Tobacco Type: Cigarettes - Alcohol History How Often Do You Have a Drink Containing Alcohol: Monthly or less - Substance Use History Substance History: No History of Abuse - Travel History History of Recent Travel: No Recent Travel in the [place] Within the Last 8 Weeks: No Recent Travel Out of the Country Within the Last 8 Weeks: No Medications and Allergies Active Medications: Active Medications Hydrocodone Bitart/Acetaminophen ([place] 5/325) 1 tab PO Q4H PRN PRN Reason: pain 1-5 Sodium Chloride (Ns Inj) 1,000 mls @ 30 mls/hr IV.SIG .Q24H [facility] Piperacillin/Tazobactam/Dextrose (Zosyn 3.375 Gm Premix) 50 mls @ 100 mls/hr IV.SIG Q6H [facility] Allergies Allergy/AdvReac Type Severity Reaction Status Date / Time No Known Allergies Allergy Verified 06/15/18 07:09 Home Medications Medication Instructions Recorded Confirmed Type amlodipine-benazepril 1 cap PO DAILY 05/31/18 06/15/18 History atorvastatin 10 mg PO DAILY 05/31/18 06/15/18 History flaxseed oil 1,000 mg PO HS 05/31/18 06/15/18 History glucosamine sulfate [Glucosamine] 1,500 mg PO HS 05/31/18 06/15/18 History levothyroxine 75 mcg PO DAILY 05/31/18 06/15/18 History minocycline 100 mg PO BID 05/31/18 06/15/18 History testosterone cypionate 200 mg IM Q2W 05/31/18 06/15/18 History Vitamin B-12 500 mg PO DAILY 06/01/18 06/15/18 History Exam Vital signs: Vital Signs 06/15/18 07:08 06/15/18 09:10 06/15/18 09:25 Temperature 99.3 F 98.5 F Pulse Rate 83 74 74 Respiratory Rate 20 20 20 Blood Pressure 117/66 107/65 122/71 Pulse Oximetry 96 95 95 06/15/18 09:55 06/15/18 10:25 06/15/18 10:55 Temperature Pulse Rate 86 80 80 Respiratory Rate 20 20 16 Blood Pressure 120/86 118/62 107/65 Pulse Oximetry 99 99 95 06/15/18 11:25 06/15/18 12:25 Temperature Pulse Rate 81 81 Respiratory Rate 16 16 Blood Pressure 117/71 114/73 Pulse Oximetry 97 93 L Intake & Output 06/14/18 06/15/18 06/15/18 18:59 06:59 18:59 Weight 78.018 kg Other: Weight On Admission 78.018 kg Caprini VTE Risk Assessment Caprini VTE Risk Assessment: Moderate/High Risk (score >= 2) Caprini Risk Assessment Model: Point Value = 1 Point Value = 2 Point Value = 3 Point Value = 5 Age 41-60 Minor surgery BMI > 25 kg/m2 Swollen legs Varicose veins or History of unexplained or recurrent spontaneous Oral contraceptives or hormone replacement Sepsis (< 1 month) Serious lung disease, including pneumonia (< 1 month) Abnormal pulmonary function Acute myocardial infarction Congestive heart failure (< 1 month) History of inflammatory bowel disease Medical patient at bed rest Age 61-74 Arthroscopic surgery Major open surgery (> 45 min) Laparoscopic surgery (> 45 min) Malignancy Confined to bed (> 72 hours) Immobilizing plaster cast Central venous access Age >= 75 History of VTE Family history of VTE Factor V Leiden Prothrombin [id number] Lupus anticoagulant Anticardiolipin antibodies Elevated serum homocysteine Heparin-induced thrombocytopenia Other congenital or acquired thrombophilia Stroke (< 1 month) Elective arthroplasty Hip, pelvis, or leg fracture Acute spinal cord injury (< 1 month) Prophylaxis Regimen: Total Risk Factor Score Risk Level Prophylaxis Regimen 0-1 Low Early ambulation 2 Moderate Order ONE of the following: *Sequential Compression Device (SCD) *Heparin 5000 units SQ BID 3-4 Higher Order ONE of the following medications: *Heparin 5000 units SQ TID *Enoxaparin/Lovenox 40 mg SQ daily (WT < 150 kg, CrCl > 30 mL/min) *Enoxaparin/Lovenox 30 mg SQ daily (WT < 150 kg, CrCl > 10-29 mL/min) *Enoxaparin/Lovenox 30 mg SQ BID (WT < 150 kg, CrCl > 30 mL/min) AND/OR *Sequential Compression Device (SCD) 5 or more Highest Order ONE of the following medications: *Heparin 5000 units SQ TID (Preferred with Epidurals) *Enoxaparin/Lovenox 40 mg SQ daily (WT < 150 kg, CrCl > 30 mL/min) *Enoxaparin/Lovenox 30 mg SQ daily (WT < 150 kg, CrCl > 10-29 mL/min) *Enoxaparin/Lovenox 30 mg SQ BID (WT < 150 kg, CrCl > 30 mL/min) AND *Sequential Compression Device (SCD) Assessment and Plan - Plan A/P - abdominal mass/ possible abscess- s/p biopsy/ drain placement today start on IV Zosyn and follow the fluid cultures. will consult general surgery and oncology. continue with pain control. of note the patient had EGD/ colonoscopy/ liver biopsy two weeks ago which revealed nonbleeding gastric ulcers, sigmoid/descending colon diverticulum/ internal hemorrhoids and hemangioma respectively. -hypertension/ dyslipidemia/ hypothyroidism; resume home meds. -DVT prophylaxis with SCD's Discussed Condition With: the patient, RN and . Discharge Planning: home- pending clinical course/ work-up. H&P: Quality - VTE Deep Vein Thrombosis/Pulmonary Embolism Present on Admission: No
--- NOTE | 2018-06-15 13:51 | CT ---
EXAM DATE: 06/15/2018 9:17 AM EDT AGE/SEX: 57 years / Male INDICATIONS: Abdominal abscess CLINICAL DATA: This is the patient's initial encounter. Patient reports that signs and symptoms have been present for 3 days and indicates a pain score of 0/10. MEDICAL/SURGICAL HISTORY: Hypertension. Hypothyroidism. . Left arm surgery tendon repair, nec k surgery, right knee surgery, upper endoscopy, colonoscopy COMPARISON: . BIOPSY SITE: Abdominal abscess MEDICATION(S): 4 mg midazolam (Versed) IV 200mcg fentanyl (Sublimaze) IV DEVICE(S): 10 Fr Skater FLUID: Total volume of of fluid was removed. . PROCEDURE : CT guided drainage of the Abdominal abscess. The patient is a 57-year-old with a mass which was previously worked up by CT imaging. This appeared to be predominantly solid by CT and MRI. The patient was scheduled for CT-guided biopsy. The risks, benefits and alternatives to the procedure were explained and verbal and written consent w as obtained. Using automated exposure control and adjustment of the mA and/or kV according to patient size, radiation dose was kept as low as reasonably achievable to obtain optimal diagnostic quality i mages. The site was prepped in sterile fashion. Full sterile technique was used, including cap, ma sk, sterile gloves and gown and a large sterile sheet. Hand hygiene and 2% chlorhexidine and/or beta dine/alcohol prep was utilized per protocol for cutaneous antisepsis. The skin and subcutaneous tiss ues were infiltrated with local anesthetic solution. DICOM format image data is available electronic ally for review and comparison. Using CT guidance the abdominal mass was easily localized. The skin above the area was anesthetized w ith 10 cc 1% lidocaine. A Lombardi blunt needle was advanced through the anterior abdominal wall into the lesion without difficulty. There was immediate return of a copious amount of purulent material. A 0.035 wire was advanced through the needle. A 10 [place] drain was passed over the wire. Approximatel y 100 cc of purulent material was removed without difficulty. The patient tolerated the procedure well and there were no complications. The patient tolerated the procedure well and there were no complications. The patient was sent to post anesthesia recovery in s table condition. CONCLUSION: 1. Uncomplicated CT guided drainage. 2. The lesion in the abdominal cavity may simply represent abdominal abscess. It is also possible th is represents malignancy which is rotated into the bowel and formed an abscess. Electronically signed by: Pavel Monahan MD 06/15/2018 1:49 PM EDT
[2018-06-15] MEDS: Piperacil/Tazo 3.375 GM Premix 50 ML IV.SIG SCH ×2 (14:56→20:23)
[2018-06-15] MEDS: Sod Chloride 0.9% Inj 1,000 ML IV.CONT SCH (14:58)
[2018-06-15 17:05] LABS: Baso # (Auto) 0.1 th/mm3 (0.0-0.2); Baso % (Auto) 0.6 % (0.0-2.0); Eos # (Auto) 0.1 th/mm3 (0.0-0.4); Eos % (Auto) 0.4 % (0.0-4.0); Hematocrit 38.6 % (39.0-51.0); Hemoglobin 13.1 gm/dL (13.0-17.0); Lymph # (Auto) 1.3 th/mm3 (1.0-4.8); Lymph % (Auto) 9.5 % (9.0-44.0); Mean Corpuscular HGB Conc 34.1 % (32.0-36.0); Mean Corpuscular Hemoglobin 31.7 pg (27.0-34.0); Mono # (Auto) 1.4 th/mm3 (0.0-0.9); Mono % (Auto) 10.2 % (0.0-8.0); Neut # (Auto) 11.2 th/mm3 (1.8-7.7); Neut % (Auto) 79.3 % (16.0-70.0); Platelet Count 473 th/mm3 (150-450); Red Blood Count 4.15 mil/mm3 (4.50-5.90); Red Cell Distribution Width 13.4 % (11.6-17.2); White Blood Count 14.1 th/mm3 (4.0-11.0)
[2018-06-15 17:11] LABS: Alanine Aminotransferase 18 U/L (12-78); Albumin 2.2 g/dL (3.4-5.0); Anion Gap 9 meq/L (5-15); Aspartate Aminotransferase 17 U/L (15-37); Blood Urea Nitrogen 12 mg/dL (7-18); Calcium 8.2 mg/dL (8.5-10.1); Chloride 101 meq/L (98-107); Glomerular Filtration Rate Greater Than 89 mL/min (>89); Glucose,Random 114 mg/dL (74-106); Sodium 139 meq/L (136-145)
[2018-06-15 17:13] LABS: Alkaline Phosphatase 76 U/L (45-117)
--- NOTE | 2018-06-15 20:18 | P.CONGS ---
[facility] Gen Surgery Consult Note Consult date: 06/15/18 Narrative: 57-year-old male who was recently hospitalized starting on May 31 for abdominal pain. He was noted to have a mass of the right lobe of the liver which on biopsy was consistent with hemangioma. He underwent EGD revealing multiple antral ulcers. He also was noted to have a mesenteric mass which was followed as an outpatient by Dr. Donato Araiza. Today he had planned biopsy of the mass, however, there was return of 100cc purulent fluid and drain placed by Dr. Brien Monahan. The patient states that his primary complaint is pain mainly of the epigastrium and left side of the abdomen which is been present for 2 weeks and continues to be somewhat severe. He feels bloated. He has had some episodes of dry heaving and one reported episode of melena. Today he has leukocytosis of 14,000. No previous abdominal surgeries. On last hospitalization CEA was normal. He denies any abdominal pain whatsoever prior to about 2 weeks ago. He drinks 2 or 3 alcoholic drinks daily but has not since this pain began. Colonoscopy during last hospitalization showed diverticulum. Review of Systems All other systems reviewed negative except as stated in [facility] - History History Provided By: Patient - Medical History Medical History: Medical History (Last Updated 06/15/18 @ 07:09 by Mariaelena Green) Abdominal mass Benign liver cyst Hypercholesteremia Hypertension Hypothyroid - Surgical History Surgical History: Surgical History (Last Reviewed 06/01/18 @ 16:19 by Gwen Preciado MD) H/O arthroscopic knee surgery H/O neck surgery - Family History Family History: Family History (Last Updated 06/01/18 @ 16:20 by Gwen Preciado MD) Father Hypertension Mother Hypertension - Tobacco History Second Hand Smoke Exposure: No Tobacco Use In Past 30 Days: No Smoking Status: Former smoker Tobacco Type: Cigarettes - Alcohol History How Often Do You Have a Drink Containing Alcohol: Monthly or less - Substance Use History Substance History: No History of Abuse - Travel History History of Recent Travel: No Recent Travel in the [place] Within the Last 8 Weeks: No Recent Travel Out of the Country Within the Last 8 Weeks: No - Immunization History Tetanus Immunization: Unsure Hx Influenza Vaccine This Season: No Medications and Allergies Active Medications: Active Medications Acetaminophen (Tylenol) 650 mg PO Q4H PRN PRN Reason: fever Hydrocodone Bitart/Acetaminophen ([place] 5/325) 1 tab PO Q4H PRN PRN Reason: pain 1-5 Hydrocodone Bitart/Acetaminophen ([place] 5/325) 2 tab PO Q4H PRN PRN Reason: pain 6-10 Last Admin: 06/15/18 18:33 Dose: 2 tab Amlodipine Besylate (Norvasc) 5 mg PO DAILY [facility] Atorvastatin Calcium (Lipitor) 10 mg PO DAILY [facility] Piperacillin/Tazobactam/Dextrose (Zosyn 3.375 Gm Premix) 50 mls @ 100 mls/hr IV.SIG Q6H [facility] Last Infusion: 06/15/18 15:26 Dose: Infused Sodium Chloride (Ns Inj) 1,000 mls @ 100 mls/hr IV.CONT .Q10H [facility] Last Admin: 06/15/18 14:58 Dose: 100 mls/hr Levothyroxine Sodium (Synthroid) 75 mcg PO DAILY@0600 [facility] Lisinopril (Prinivil) 20 mg PO DAILY [facility] Ondansetron HCl (Zofran Inj) 4 mg IV.PUSH Q8H PRN PRN Reason: nausea Pantoprazole Sodium (Protonix) 40 mg PO BID [facility] Allergies Allergy/AdvReac Type Severity Reaction Status Date / Time No Known Allergies Allergy Verified 06/15/18 07:09 Home Medications Medication Instructions Recorded Confirmed Type amlodipine-benazepril 1 cap PO DAILY 05/31/18 06/15/18 History atorvastatin 10 mg PO DAILY 05/31/18 06/15/18 History flaxseed oil 1,000 mg PO HS 05/31/18 06/15/18 History glucosamine sulfate [Glucosamine] 1,500 mg PO HS 05/31/18 06/15/18 History levothyroxine 75 mcg PO DAILY 05/31/18 06/15/18 History minocycline 100 mg PO BID 05/31/18 06/15/18 History testosterone cypionate 200 mg IM Q2W 05/31/18 06/15/18 History Vitamin B-12 500 mg PO DAILY 06/01/18 06/15/18 History Exam Vital signs: Vital Signs 06/15/18 07:08 06/15/18 09:10 06/15/18 09:25 Temperature 99.3 F 98.5 F Pulse Rate 83 74 74 Respiratory Rate 20 20 20 Blood Pressure 117/66 107/65 122/71 Pulse Oximetry 96 95 95 06/15/18 09:55 06/15/18 10:25 06/15/18 10:55 Temperature Pulse Rate 86 80 80 Respiratory Rate 20 20 16 Blood Pressure 120/86 118/62 107/65 Pulse Oximetry 99 99 95 06/15/18 11:25 06/15/18 12:25 06/15/18 13:25 Temperature Pulse Rate 81 81 84 Respiratory Rate 16 16 16 Blood Pressure 117/71 114/73 115/64 Pulse Oximetry 97 93 L 96 06/15/18 14:00 06/15/18 15:53 06/15/18 16:00 Temperature 98.1 F Pulse Rate 84 75 73 Respiratory Rate 16 18 Blood Pressure 115/64 103/61 Pulse Oximetry 95 95 Intake & Output 06/15/18 06/15/18 06/16/18 06:59 18:59 06:59 Intake Total 50 / 50 Balance 50 / 50 Weight 78.018 kg Intake: IV 50 / 50 Zosyn 3.375 GM Premix 50 ML @ 50 / 50 100 mls/hr IV.SIG Q6H [facility] Rx#: [id number] Other: Date of Last Bowel Movement 06/13/18 Weight On Admission 78.018 kg Narrative: GENERAL: Awake and alert. No acute distress. Cooperative. HEAD: Normocephalic. Atraumatic. EYES: Pupils equal round and reactive to light bilaterally. No scleral icterus. ENT: Moist oral mucosa. NECK: Trachea midline. CHEST: Nonlabored breathing. No respiratory distress. CARDIOVASCULAR: Regular rate and rhythm. ABDOMEN: Moderate distention. Mild tenderness in the epigastrium moderate to severe tenderness in the left abdomen. Accordion drain in place with copious thick brown output. EXTREMITIES: No cyanosis or edema. SKIN: Warm, dry, nonjaundiced. Results - Labs 06/15/18 16:30 06/15/18 16:30 Laboratory Results - last 24 hr 06/15/18 06/15/18 16:30 16:30 WBC 14.1 H RBC 4.15 L Hgb 13.1 Hct 38.6 L MCV 93.0 MCH 31.7 MCHC 34.1 RDW 13.4 Plt Count 473 H D MPV 8.0 Neut % (Auto) 79.3 H Lymph % (Auto) 9.5 [place] % (Auto) 10.2 H Eos % (Auto) 0.4 Baso % (Auto) 0.6 Neut # (Auto) 11.2 H Lymph # (Auto) 1.3 [place] # (Auto) 1.4 H Eos # (Auto) 0.1 Baso # (Auto) 0.1 WBC Differential . Differential Comment Auto diff final Sodium 139 Potassium 4.0 Chloride 101 Carbon Dioxide 29.0 Anion Gap 9 BUN 12 Creatinine 0.85 Estimated GFR Greater than 89 Random Glucose 114 H Calcium 8.2 L Total Bilirubin 0.2 AST 17 ALT 18 Alkaline Phosphatase 76 Total Protein 6.0 L Albumin 2.2 L - Imaging Imaging: ITS Impressions Abscess Drainage CT 06/15/18 00:00 CONCLUSION: 1. Uncomplicated CT guided drainage. 2. The lesion in the abdominal cavity may simply represent abdominal abscess. It is also possible this represents malignancy which is rotated into the bowel and formed an abscess. CT scan - abdomen: report reviewed, image reviewed CT scan - pelvis: report reviewed, image reviewed (CT guided drainage images reviewed. MRI abdomen report reviewed.) Assessment and Plan - Assessment (1) Abdominal mass Code(s): R19.00 - Intra-abdominal and pelvic swelling, mass and lump, unspecified site Status: Acute - Plan Etiology of the abdominal mass is unclear. Could be mesenteric cyst versus diverticular abscess versus another etiology. Continue Zosyn. Follow exam and labs. Will benefit from a repeat CT in a few days.
[2018-06-16] MEDS: Piperacil/Tazo 3.375 GM Premix 50 ML IV.SIG SCH ×4 (01:48→20:05)
[2018-06-16] MEDS: Sod Chloride 0.9% Inj 1,000 ML IV.CONT SCH ×3 (01:48→12:46)
[2018-06-16] MEDS: Levothyroxine 75 MCG Tablet PO SCH (05:30)
[2018-06-16] MEDS: amLODIPine 5 MG Tablet PO SCH (08:55)
[2018-06-16] MEDS: Lisinopril 20 MG Tablet PO SCH (08:55)
--- NOTE | 2018-06-16 11:05 | MB ---
cc: Donato Araiza MD DATE: 06/16/2018 ATTENDING PHYSICIAN: Dr. Singer. REASON FOR CONSULTATION: Oncology consulted. The patient with mesenteric mass. HISTORY OF PRESENT ILLNESS: The patient is a very pleasant 57-year-old male, admitted to the hospital about 10 days ago with acute abdominal pain, mostly in the midepigastric area. He was doing well prior to the abdominal pain. He stated he was working and then he developed this pain, which has been persistent over the last 2 weeks or so. During the last hospital stay, he had EGD and colonoscopy which showed ulcers, but no masses. A CT scan; however, showed a 5.8 cm mass in the mid abdomen in the mesentery and a calcified mass in the liver. He had a biopsy of the liver mass, which showed a hemangioma, sent him for a biopsy of the mesenteric mass. When Dr. Monahan tried a needle biopsy yesterday, he obtained copious pus and a drain was placed. He stated that 100 mL of pus was drained easily. The patient remains afebrile. He still has pain in the midepigastric area, but it is controlled with pain medication. He had a decreased oral intake and lost about 9 pounds. He has some nausea, but no significant emesis. He denies any melena or hematochezia. He had a good bowel movement this morning. He denies any chest pain, denies shortness of breath. Denies any headache, focal numbness or weakness. PAST MEDICAL HISTORY: 1. Hyperlipidemia. 2. Hypertension. 3. Hypothyroidism. 4. Gastric ulcer. 5. Liver hemangioma. 6. Mesenteric mass. PAST SURGICAL HISTORY: 1. Upper endoscopy and colonoscopy 05/2018 2. Liver biopsy 05/2018. 3. Neck surgery. 4. Knee arthroscopic surgery. FAMILY HISTORY: Mother had breast cancer. He has 2 brothers and 2 sisters; all relatively healthy. SOCIAL HISTORY: The patient quit smoking 10 years ago. He has about [id number] smoking history. He drinks occasionally. ALLERGIES: NO KNOWN DRUG ALLERGIES. OUTPATIENT MEDICATIONS: 1. Amlodipine. 2. Atorvastatin. 3. B12. 4. Calcium. 5. Flaxseed oil. 6. Glucosamine. 7. Hydrocodone. 8. Levothyroxine. 9. Minocycline. 10. Pantoprazole. 11. Testosterone. REVIEW OF SYSTEMS: CONSTITUTIONAL: As above. EYES: Negative. ENT: Negative. CARDIOVASCULAR: Negative. RESPIRATORY: Negative. GASTROINTESTINAL: As above. GENITOURINARY: Negative. MUSCULOSKELETAL: Negative. HEMATOLOGIC: Negative. ENDOCRINE: Negative. HEMATOLOGY Negative. PSYCHIATRIC: Negative. NEUROLOGIC: Negative. PHYSICAL EXAMINATION: VITAL SIGNS: Temperature 97.7, blood pressure 104/63, O2 saturation 99% on room air. GENERAL: He is alert, oriented x3, no acute distress. HEENT: Atraumatic, normocephalic. Pupils are equal, round, reactive to light. Extraocular muscles intact. No scleral icterus. Oropharynx dry mucosa. No lesion, no thrush. No mucositis. NECK: No thyromegaly. No palpable mass. LYMPHATIC: No palpable cervical, clavicular, axillary, or inguinal lymph nodes. HEART: Regular S1, S2. No murmur. LUNGS: Clear to auscultation bilaterally. ABDOMEN: Soft; drain noted, is warp dyeing tender in the upper abdomen. No rebound or rigidity. Positive bowel sounds. EXTREMITIES: No cyanosis, clubbing or edema. BACK: No paravertebral tenderness. SKIN: No rash. NEUROLOGIC: Nonfocal. LABORATORY DATA: WBC 14.1, hemoglobin 13.1, platelet count 473. Creatinine 0.85. Liver transaminase within normal limits. ASSESSMENT: 1. Large mesenteric mass. He presented with mid epigastric pain about [address] showed a 5.9 cm x 5.9 cm x 5.3 cm mass in the anterior mesentery. The mass appeared to be contiguous with adjacent small bowel loop; appeared to be separate from the small bowel, or colon. The mass is adjacent to small bowel loop, but appeared to be separate from the small bowel or colon. EGD showed multiple medium sized ulcers, but no masses. Biopsy showed reactive gastropathy and no neoplasm noted. Colonoscopy showed diverticular disease, but no masses. Biopsy of the liver mass showed a hemangioma. The patient had a biopsy of the mesenteric mass yesterday by Dr. Monahan; however, Dr. Monahan obtained copious pus and the drain was placed. The drain is still draining light brown, thick purulent material. The patient has been evaluated by Dr. Kim. He was also started on antibiotic. At this point, it is unclear if this is an abscess or a necrotic tumor. 2. Irregular calcified hepatic mass; biopsy showing hemangioma. 3. Abdominal pain as above. His pain is controlled at this time. 4. Hypothyroidism. 5. Hypertension. 6. Hyperlipidemia. PLAN: 1. Continue antibiotic per primary team pending culture. 2. Surgery is following and the patient may need a surgical resection if he has a persistent mass. 3. Continue supportive care. Thank you, Dr. Singer for asking me to see this patient. MD KIRSTEN Shi/helio , 08:03 AM , 08:19 AM MIRTA
--- NOTE | 2018-06-16 11:49 | P.DIET ---
Nutritional Evaluation Type of nutrition evaluation: initial Nutrition screening: Weight Loss > 10 lbs Subjective Subjective Comments: Reported weight loss of 9 lbs. Pt ate 50% of breakfast thsi morning. Objective - Diagnosis R19.00, R16.0 - Objective Body Mass Index: 27.8 % IBW: 118 (IBW = 154#) Body Weight Used for Calculations: Actual (82.8 kg) Energy Needs - Lower Range (kCal/kg): 25 Energy Needs - Upper Range (kCal/kg): 30 Lower Limit kCal/kg (kCals): 2,070 Upper Limit kCal/kg (kCals): 2,484 Lower Limit Protein Factor (Grams per Kg): 1.0 Upper Limit Protein Factor (Grams per Kg): 1.5 Lower Protein Needs (Protein): 83 Upper Protein Needs (Protein): 124 Fluid Factor (ml/kg): 30 Estimated Fluid Needs (ml): 2,484 Dietitian Reviewed in Medical Record: Current diet, Curent medications, Intake & Output, Labs, Medical history Diet Order: Regular Objective Comments: 06/02 coloscopy, panendoscopy w/bx 06/15 CT abscess drain Assessment Assessment: Pt is at high nutrition risk d/t unintentional weight loss and dx to include new mesenteric mass. PO intake is currently fair and wt remains wnl of IBW range with a BMI of 27.8 Will send Ensure Enlive for added nutrition: each 8 oz serving provides 350 kcals and 20 gms protein. Recommendations: 1. Continue regular diet 2. Ensure Enlive tid 3. RD will monitor Dietitian to Monitor: Lab values, Supplement acceptance, Intake & Output, Diet tolerance, Weight change, PO Intake, Medical course
--- NOTE | 2018-06-16 11:54 | P.PNIM ---
Subjective Interval history: f/u; abdominal mass/abscess in no acute distress. still with generalized abdominal pain which hasn't improved as much since yesterday. no fever. d/w the RN. Physical Exam Vital signs: Vital Signs 06/15/18 12:25 06/15/18 13:25 06/15/18 14:00 Temperature Pulse Rate 81 84 84 Respiratory Rate 16 16 16 Blood Pressure 114/73 115/64 115/64 Pulse Oximetry 93 L 96 95 06/15/18 15:53 06/15/18 16:00 06/15/18 20:00 Temperature 98.1 F 98.3 F Pulse Rate 75 73 69 Respiratory Rate 18 18 Blood Pressure 103/61 116/69 Pulse Oximetry 95 97 06/16/18 00:00 06/16/18 04:00 06/16/18 08:00 Temperature 97.9 F 97.7 F 98.2 F Pulse Rate 60 77 73 Respiratory Rate 18 18 18 Blood Pressure 108/57 L 104/63 123/65 Pulse Oximetry 98 99 98 Intake & Output 06/15/18 06/16/18 06/16/18 18:59 06:59 18:59 Intake Total 50 / 50 1340 / 1340 750 / 750 Output Total 150 / 150 Balance 50 / 50 1190 / 1190 750 / 750 Weight 78.018 kg 82.8 kg Intake: IV 50 / 50 1100 / 1100 750 / 750 NS Inj 1,000 ML @ 100 mls/hr IV 1000 / 1000 700 / 700 .CONT .Q10H [facility] Rx#:[id number] Zosyn 3.375 GM Premix 50 ML @ 50 / 50 100 / 100 50 / 50 100 mls/hr IV.SIG Q6H [facility] Rx#: [id number] Oral 240 / 240 Output: Gastric Drainage 150 / 150 Left Lower Quadrant 150 / 150 Other: # Voids 1 Date of Last Bowel Movement 06/13/18 06/13/18 Weight On Admission 78.018 kg - Constitutional no acute distress - Routine Respiratory Exam Present: CTA bilaterally - Routine Cardiovascular Exam Present: RRR - Routine Abdominal Exam Present: soft, tenderness (generalized tenderness.) - Routine Extremities Exam Comments: no pedal edema. - Routine Neurological Exam Present: alert, oriented X3 Results - Labs CBC & Chem 7: 06/15/18 16:30 06/15/18 16:30 Laboratory Results - last 24 hr 06/15/18 06/15/18 16:30 16:30 WBC 14.1 H RBC 4.15 L Hgb 13.1 Hct 38.6 L MCV 93.0 MCH 31.7 MCHC 34.1 RDW 13.4 Plt Count 473 H D MPV 8.0 Neut % (Auto) 79.3 H Lymph % (Auto) 9.5 [place] % (Auto) 10.2 H Eos % (Auto) 0.4 Baso % (Auto) 0.6 Neut # (Auto) 11.2 H Lymph # (Auto) 1.3 [place] # (Auto) 1.4 H Eos # (Auto) 0.1 Baso # (Auto) 0.1 WBC Differential . Differential Comment Auto diff final Sodium 139 Potassium 4.0 Chloride 101 Carbon Dioxide 29.0 Anion Gap 9 BUN 12 Creatinine 0.85 Estimated GFR Greater than 89 Random Glucose 114 H Calcium 8.2 L Total Bilirubin 0.2 AST 17 ALT 18 Alkaline Phosphatase 76 Total Protein 6.0 L Albumin 2.2 L Microbiology 06/15/18 08:50 Abscess - Abdominal Gram Stain - Final 06/15/18 08:50 Abscess - Abdominal Wound Culture - Preliminary Beta Strep not A,B or D - Imaging Impressions Abscess Drainage CT 06/15/18 00:00 CONCLUSION: 1. Uncomplicated CT guided drainage. 2. The lesion in the abdominal cavity may simply represent abdominal abscess. It is also possible this represents malignancy which is rotated into the bowel and formed an abscess. Assessment and Plan - Plan A/P - abdominal mass/ possible abscess- s/p biopsy/ drain placement on 06/15/18 continue IV Zosyn and follow the fluid cultures. general surgery and oncology evaluation appreciated. continue with pain control. of note the patient had EGD/ colonoscopy/ liver biopsy two weeks ago which revealed nonbleeding gastric ulcers, sigmoid/descending colon diverticulum/ internal hemorrhoids and hemangioma respectively. -hypertension/ dyslipidemia/ hypothyroidism; resumed home meds. -DVT prophylaxis with SCD's Discharge Planning: home- pending clinical course/ work-up.
[2018-06-17] MEDS: Sod Chloride 0.9% Inj 1,000 ML IV.CONT SCH ×3 (00:36→15:36)
[2018-06-17] MEDS: Piperacil/Tazo 3.375 GM Premix 50 ML IV.SIG SCH ×4 (01:40→21:47)
[2018-06-17] MEDS: Levothyroxine 75 MCG Tablet PO SCH (05:29)
[2018-06-17 06:02] LABS: Baso % (Auto) 0.8 % (0.0-2.0); Eos # (Auto) 0.2 th/mm3 (0.0-0.4); Eos % (Auto) 3.1 % (0.0-4.0); Hematocrit 39.1 % (39.0-51.0); Hemoglobin 13.1 gm/dL (13.0-17.0); Lymph # (Auto) 1.2 th/mm3 (1.0-4.8); Lymph % (Auto) 21.1 % (9.0-44.0); Mean Corpuscular HGB Conc 33.5 % (32.0-36.0); Mean Corpuscular Hemoglobin 31.3 pg (27.0-34.0); Mean Corpuscular Volume 93.4 fL (80.0-100.0); Mean Platelet Volume 7.1 fL (7.0-11.0); Mono # (Auto) 0.7 th/mm3 (0.0-0.9); Mono % (Auto) 11.6 % (0.0-8.0); Neut # (Auto) 3.7 th/mm3 (1.8-7.7); Neut % (Auto) 63.4 % (16.0-70.0); Platelet Count 485 th/mm3 (150-450); Red Blood Count 4.19 mil/mm3 (4.50-5.90); Red Cell Distribution Width 13.3 % (11.6-17.2); White Blood Count 5.9 th/mm3 (4.0-11.0)
[2018-06-17 06:28] LABS: Calcium 8.4 mg/dL (8.5-10.1); Carbon Dioxide 29.9 meq/L (21.0-32.0); Potassium 4.4 meq/L (3.5-5.1)
[2018-06-17] MEDS: Lisinopril 20 MG Tablet PO SCH (08:53)
[2018-06-17] MEDS: amLODIPine 5 MG Tablet PO SCH (08:54)
--- NOTE | 2018-06-17 10:50 | P.PNIM ---
Subjective Interval history: f/u; abdominal mass/abscess in no acute distress. feels and looks better today. no fever. abdominal pain is better today. Physical Exam Vital signs: Vital Signs 06/16/18 11:43 06/16/18 12:00 06/16/18 16:00 Temperature 98.1 F 98.1 F Pulse Rate 76 77 77 Respiratory Rate 18 18 Blood Pressure 111/68 115/69 Pulse Oximetry 96 98 06/16/18 16:08 06/16/18 20:00 06/17/18 00:00 Temperature 97.6 F 97.4 F L Pulse Rate 81 70 59 L Respiratory Rate 18 20 Blood Pressure 126/79 129/71 Pulse Oximetry 96 99 06/17/18 04:00 06/17/18 08:00 Temperature 97.3 F L 98.0 F Pulse Rate 56 L 63 Respiratory Rate 18 16 Blood Pressure 118/74 119/68 Pulse Oximetry 97 96 Intake & Output 06/16/18 06/17/18 06/17/18 18:59 06:59 18:59 Intake Total 1580 / 1580 1820 / 1820 1050 / 1050 Output Total 20 / 20 20 / 20 Balance 1560 / 1560 1820 / 1820 1030 / 1030 Weight 82.8 kg Intake: IV 1100 / 1100 1100 / 1100 1050 / 1050 NS Inj 1,000 ML @ 100 mls/hr IV 1000 / 1000 1000 / 1000 1000 / 1000 .CONT .Q10H [facility] Rx#:[id number] Zosyn 3.375 GM Premix 50 ML @ 100 / 100 100 / 100 50 / 50 100 mls/hr IV.SIG Q6H [facility] Rx#: [id number] Oral 480 / 480 720 / 720 Output: Gastric Drainage 20 / 20 20 / 20 Left Lower Quadrant 20 / 20 20 / 20 Other: # Voids 3 2 Date of Last Bowel Movement 06/13/18 06/16/18 - Constitutional no acute distress - Routine Respiratory Exam Present: CTA bilaterally - Routine Cardiovascular Exam Present: RRR - Routine Abdominal Exam Present: soft, tenderness (tenderness has improved.) Results - Labs CBC & Chem 7: 06/17/18 05:05 06/17/18 05:05 Laboratory Results - last 24 hr 06/17/18 06/17/18 05:05 05:05 WBC 5.9 RBC 4.19 L Hgb 13.1 Hct 39.1 MCV 93.4 MCH 31.3 MCHC 33.5 RDW 13.3 Plt Count 485 H MPV 7.1 Neut % (Auto) 63.4 Lymph % (Auto) 21.1 [place] % (Auto) 11.6 H Eos % (Auto) 3.1 Baso % (Auto) 0.8 Neut # (Auto) 3.7 Lymph # (Auto) 1.2 [place] # (Auto) 0.7 Eos # (Auto) 0.2 Baso # (Auto) 0.0 WBC Differential . Differential Comment Auto diff final Sodium 142 Potassium 4.4 Chloride 107 Carbon Dioxide 29.9 Anion Gap 5 BUN 7 Creatinine 0.94 Estimated GFR 83 L Random Glucose 92 Calcium 8.4 L Microbiology 06/15/18 08:50 Abscess - Abdominal Gram Stain - Final 06/15/18 08:50 Abscess - Abdominal Wound Culture - Preliminary Beta Strep not A,B or D 06/15/18 08:50 Abscess - Abdominal Fungal Smear - Final No fungal elements seen Assessment and Plan - Plan A/P - abdominal mass/ possible abscess- s/p biopsy/ drain placement on 06/15/18 continue IV Zosyn - fluid culture with beta-strep. general surgery and oncology following. continue with pain control. of note the patient had EGD/ colonoscopy/ liver biopsy two weeks ago which revealed nonbleeding gastric ulcers, sigmoid/descending colon diverticulum/ internal hemorrhoids and hemangioma respectively. -hypertension/ dyslipidemia/ hypothyroidism; resumed home meds. -DVT prophylaxis with SCD's Discharge Planning: home- pending clinical course/ work-up.
--- NOTE | 2018-06-17 13:55 | P.PNGS ---
Subjective Interval history: He continues to complain of significant abdominal pain and bloating. Not tolerating diet well. WBC now normal. Drainage decreasing. Physical Exam Vital signs: Vital Signs 06/16/18 16:00 06/16/18 16:08 06/16/18 20:00 Temperature 98.1 F 97.6 F Pulse Rate 77 81 70 Respiratory Rate 18 18 Blood Pressure 115/69 126/79 Pulse Oximetry 98 96 06/17/18 00:00 06/17/18 04:00 06/17/18 08:00 Temperature 97.4 F L 97.3 F L 98.0 F Pulse Rate 59 L 56 L 63 Respiratory Rate 20 18 16 Blood Pressure 129/71 118/74 119/68 Pulse Oximetry 99 97 96 06/17/18 12:00 Temperature 98.2 F Pulse Rate 82 Respiratory Rate 16 Blood Pressure 119/69 Pulse Oximetry 94 L Intake & Output 06/16/18 06/17/18 06/17/18 18:59 06:59 18:59 Intake Total 1580 / 1580 1820 / 1820 1100 / 1100 Output Total 20 / 20 20 / 20 Balance 1560 / 1560 1820 / 1820 1080 / 1080 Weight 82.8 kg Intake: IV 1100 / 1100 1100 / 1100 1100 / 1100 NS Inj 1,000 ML @ 100 mls/hr IV 1000 / 1000 1000 / 1000 1000 / 1000 .CONT .Q10H [facility] Rx#:[id number] Zosyn 3.375 GM Premix 50 ML @ 100 / 100 100 / 100 100 / 100 100 mls/hr IV.SIG Q6H [facility] Rx#: [id number] Oral 480 / 480 720 / 720 Output: Gastric Drainage 20 / 20 20 / 20 Left Lower Quadrant 20 / 20 20 / 20 Other: # Voids 3 2 Date of Last Bowel Movement 06/13/18 06/16/18 Narrative: NAD Abd: soft, mod distention, mod left side ttp, drainage 20cc purulence/24h Results - Labs 06/17/18 05:05 06/17/18 05:05 Laboratory Results - last 24 hr 06/17/18 06/17/18 05:05 05:05 WBC 5.9 RBC 4.19 L Hgb 13.1 Hct 39.1 MCV 93.4 MCH 31.3 MCHC 33.5 RDW 13.3 Plt Count 485 H MPV 7.1 Neut % (Auto) 63.4 Lymph % (Auto) 21.1 [place] % (Auto) 11.6 H Eos % (Auto) 3.1 Baso % (Auto) 0.8 Neut # (Auto) 3.7 Lymph # (Auto) 1.2 [place] # (Auto) 0.7 Eos # (Auto) 0.2 Baso # (Auto) 0.0 WBC Differential . Differential Comment Auto diff final Sodium 142 Potassium 4.4 Chloride 107 Carbon Dioxide 29.9 Anion Gap 5 BUN 7 Creatinine 0.94 Estimated GFR 83 L Random Glucose 92 Calcium 8.4 L - Imaging Imaging: ITS Impressions Abscess Drainage CT 06/15/18 00:00 CONCLUSION: 1. Uncomplicated CT guided drainage. 2. The lesion in the abdominal cavity may simply represent abdominal abscess. It is also possible this represents malignancy which is rotated into the bowel and formed an abscess. Assessment and Plan - Assessment (1) Abdominal mass Code(s): R19.00 - Intra-abdominal and pelvic swelling, mass and lump, unspecified site Status: Acute - Plan Mesenteric mass, cyst, abscess- etiology is unknown - persistent pain, decreased drainage, nml WBC. Repeat CT a/p tomorrow or Friday. D/w Dr. Burnett. D/w patient and his .
--- NOTE | 2018-06-17 16:45 | P.PNONC ---
Subjective Interval history: Patient still has abdominal pain. He is feeling slightly better. There is still drainage from the drain but decreased. He remains afebrile. He denies any chest pain or shortness of breath. Objective Vital Signs/Intake & Output: Vital Signs 06/16/18 20:00 06/17/18 00:00 06/17/18 04:00 Temperature 97.6 F 97.4 F L 97.3 F L Pulse Rate 70 59 L 56 L Respiratory Rate 18 20 18 Blood Pressure 126/79 129/71 118/74 Pulse Oximetry 96 99 97 06/17/18 08:00 06/17/18 12:00 06/17/18 16:00 Temperature 98.0 F 98.2 F 98.1 F Pulse Rate 63 82 66 Respiratory Rate 16 16 17 Blood Pressure 119/68 119/69 117/68 Pulse Oximetry 96 94 L 98 Intake & Output 06/16/18 06/17/18 06/17/18 18:59 06:59 18:59 Intake Total 1580 / 1580 1820 / 1820 1100 / 1100 Output Total 20 / 20 20 / 20 Balance 1560 / 1560 1820 / 1820 1080 / 1080 Weight 82.8 kg Intake: IV 1100 / 1100 1100 / 1100 1100 / 1100 NS Inj 1,000 ML @ 100 mls/hr IV 1000 / 1000 1000 / 1000 1000 / 1000 .CONT .Q10H [facility] Rx#:[id number] Zosyn 3.375 GM Premix 50 ML @ 100 / 100 100 / 100 100 / 100 100 mls/hr IV.SIG Q6H [facility] Rx#: [id number] Oral 480 / 480 720 / 720 Output: Gastric Drainage 20 / 20 20 / 20 Left Lower Quadrant 20 / 20 20 / 20 Other: # Voids 3 2 Date of Last Bowel Movement 06/13/18 06/16/18 Result Diagrams: 06/17/18 05:05 06/17/18 05:05 Laboratory Results: Laboratory Results - last 24 hr 06/17/18 06/17/18 05:05 05:05 WBC 5.9 RBC 4.19 L Hgb 13.1 Hct 39.1 MCV 93.4 MCH 31.3 MCHC 33.5 RDW 13.3 Plt Count 485 H MPV 7.1 Neut % (Auto) 63.4 Lymph % (Auto) 21.1 [place] % (Auto) 11.6 H Eos % (Auto) 3.1 Baso % (Auto) 0.8 Neut # (Auto) 3.7 Lymph # (Auto) 1.2 [place] # (Auto) 0.7 Eos # (Auto) 0.2 Baso # (Auto) 0.0 WBC Differential . Differential Comment Auto diff final Sodium 142 Potassium 4.4 Chloride 107 Carbon Dioxide 29.9 Anion Gap 5 BUN 7 Creatinine 0.94 Estimated GFR 83 L Random Glucose 92 Calcium 8.4 L Culture Results: Microbiology 06/15/18 08:50 Acid Fast Bacilli Smear - Final Abscess - Abdominal No acid fast bacilli seen 06/15/18 08:50 Gram Stain - Final Abscess - Abdominal Wound Culture - Preliminary Beta Strep not A,B or D 06/15/18 08:50 Fungal Smear - Final Abscess - Abdominal No fungal elements seen Medications: Active Medications Generic Name Dose Route Start Last Admin Trade Name Freq PRN Reason Stop Dose Admin Hydrocodone Bitart/Acetaminophen 2 tab 06/15/18 13:28 06/17/18 15:35 [place] 5/325 PO 2 tab Q4H PRN Administration pain 6-10 Amlodipine Besylate 5 mg 06/16/18 09:00 06/17/18 08:54 Norvasc PO 5 mg DAILY [facility] Administration Atorvastatin Calcium 10 mg 06/16/18 09:00 06/17/18 08:53 Lipitor PO 10 mg DAILY [facility] Administration Piperacillin/Tazobactam/Dextrose 50 mls @ 100 mls/hr 06/15/18 14:00 06/17/18 13:05 Zosyn 3.375 Gm Premix IV.SIG Infused Q6H [facility] Infusion Sodium Chloride 1,000 mls @ 100 mls/hr 06/15/18 13:30 06/17/18 15:36 Ns Inj IV.CONT 100 mls/hr .Q10H [facility] Administration Levothyroxine Sodium 75 mcg 06/16/18 06:00 06/17/18 05:29 Synthroid PO 75 mcg DAILY@0600 [facility] Administration Lisinopril 20 mg 06/16/18 09:00 06/17/18 08:53 Prinivil PO 20 mg DAILY [facility] Administration Pantoprazole Sodium 40 mg 06/15/18 21:00 06/17/18 08:54 Protonix PO 40 mg BID [facility] Administration Objective Remarks: GENERAL: Well-nourished, well-developed patient. SKIN: Warm and dry. HEAD: Normocephalic. EYES: No scleral icterus. No injection or drainage. NECK: Supple, trachea midline. No JVD or lymphadenopathy. LYMPHATIC: No adenopathy. CARDIOVASCULAR: Regular rate and rhythm without murmurs. RESPIRATORY: Breath sounds equal bilaterally. No accessory muscle use. GASTROINTESTINAL: Abdomen soft, tender in the upper abdomen. Drain noted with less drainage. EXTREMITIES: No cyanosis, or edema. MUSCULOSKELETAL: Adequate muscle tone. NEUROLOGICAL: No obvious focal deficit. Awake, alert, and oriented x3. PSYCHIATRIC: Appropriate mood and affect; insight and judgment normal. Assessment/Plan (1) Liver mass, right lobe Code(s): R16.0 - Hepatomegaly, not elsewhere classified Status: Acute (2) Abdominal mass Code(s): R19.00 - Intra-abdominal and pelvic swelling, mass and lump, unspecified site Status: Acute - Plan 1. Large mesenteric mass. He presented with mid epigastric pain about [address] showed a 5.9 cm x 5.9 cm x 5.3 cm mass in the anterior mesentery. The mass appeared to be contiguous with adjacent small bowel loop; appeared to be separate from the small bowel, or colon. The mass is adjacent to small bowel loop, but appeared to be separate from the small bowel or colon. EGD showed multiple medium sized ulcers, but no masses. Biopsy showed reactive gastropathy and no neoplasm noted. Colonoscopy showed diverticular disease, but no masses. Biopsy of the liver mass showed a hemangioma. The patient had a biopsy of the mesenteric mass yesterday by Dr. Monahan; however, Dr. Monahan obtained copious pus and the drain was placed. June 17, 2018. There is less drainage noted in the drain. Patient still has abdominal pain. Dr. Kim is following and plan to repeat CT scan in another day or 2. At this point, it is unclear if this is an abscess or a necrotic tumor. 2. Irregular calcified hepatic mass; biopsy showing hemangioma. 3. Abdominal pain as above. His pain is controlled at this time. PLAN: 1. Continue antibiotic per primary team pending culture. 2. Surgery is following and the patient may need a surgical resection if he has a persistent mass. Plan to repeat CT scan in another day or 2. 3. Continue supportive care.
[2018-06-18] MEDS: Sod Chloride 0.9% Inj 1,000 ML IV.CONT SCH ×3 (01:37→22:16)
[2018-06-18] MEDS: Piperacil/Tazo 3.375 GM Premix 50 ML IV.SIG SCH ×4 (01:37→21:16)
[2018-06-18] MEDS: Levothyroxine 75 MCG Tablet PO SCH (05:42)
--- NOTE | 2018-06-18 07:38 | P.PNONC ---
Subjective Interval history: Patient is feeling a little better. He still has pressure sensation in the abdomen. He had loose stool this morning. He denies any nausea vomiting. Drain is draining serosanguineous fluid. Objective Vital Signs/Intake & Output: Vital Signs 06/17/18 08:00 06/17/18 12:00 06/17/18 16:00 Temperature 98.0 F 98.2 F 98.1 F Pulse Rate 64 73 63 Respiratory Rate 16 16 17 Blood Pressure 119/68 119/69 117/68 Pulse Oximetry 96 94 L 98 06/17/18 20:00 06/18/18 00:00 06/18/18 04:00 Temperature 96.1 F L 97.6 F 97.9 F Pulse Rate 70 58 L 72 Respiratory Rate 20 17 17 Blood Pressure 136/77 130/72 129/70 Pulse Oximetry 98 95 95 Intake & Output 06/17/18 06/18/18 06/18/18 18:59 06:59 18:59 Intake Total 1700 / 1700 1340 / 1340 Output Total 20 / 20 50 / 50 Balance 1680 / 1680 1290 / 1290 Weight 83.1 kg Intake: IV 1100 / 1100 1100 / 1100 NS Inj 1,000 ML @ 100 mls/hr IV 1000 / 1000 1000 / 1000 .CONT .Q10H [facility] Rx#:[id number] Zosyn 3.375 GM Premix 50 ML @ 100 / 100 100 / 100 100 mls/hr IV.SIG Q6H [facility] Rx#: [id number] Oral 600 / 600 240 / 240 Output: Gastric Drainage 20 / 20 Left Lower Quadrant 20 / 20 Wound Drainage 50 / 50 Left Lower Abdomen 50 / 50 Other: # Voids 3 2 Date of Last Bowel Movement 06/17/18 # Bowel Movements 1 Result Diagrams: 06/17/18 05:05 06/17/18 05:05 Culture Results: Microbiology 06/15/18 08:50 Acid Fast Bacilli Smear - Final Abscess - Abdominal No acid fast bacilli seen 06/15/18 08:50 Gram Stain - Final Abscess - Abdominal Wound Culture - Preliminary Beta Strep not A,B or D 06/15/18 08:50 Fungal Smear - Final Abscess - Abdominal No fungal elements seen Medications: Active Medications Generic Name Dose Route Start Last Admin Trade Name Freq PRN Reason Stop Dose Admin Hydrocodone Bitart/Acetaminophen 2 tab 06/15/18 13:28 06/18/18 07:28 [place] 5/325 PO 2 tab Q4H PRN Administration pain 6-10 Amlodipine Besylate 5 mg 06/16/18 09:00 06/17/18 08:54 Norvasc PO 5 mg DAILY [facility] Administration Atorvastatin Calcium 10 mg 06/16/18 09:00 06/17/18 08:53 Lipitor PO 10 mg DAILY [facility] Administration Piperacillin/Tazobactam/Dextrose 50 mls @ 100 mls/hr 06/15/18 14:00 06/18/18 05:31 Zosyn 3.375 Gm Premix IV.SIG Infused Q6H [facility] Infusion Sodium Chloride 1,000 mls @ 100 mls/hr 06/15/18 13:30 06/18/18 01:37 Ns Inj IV.CONT 100 mls/hr .Q10H [facility] Administration Levothyroxine Sodium 75 mcg 06/16/18 06:00 06/18/18 05:42 Synthroid PO 75 mcg DAILY@0600 [facility] Administration Lisinopril 20 mg 06/16/18 09:00 06/17/18 08:53 Prinivil PO 20 mg DAILY [facility] Administration Pantoprazole Sodium 40 mg 06/15/18 21:00 06/17/18 21:47 Protonix PO 40 mg BID [facility] Administration Objective Remarks: GENERAL: Well-nourished, well-developed patient. SKIN: Warm and dry. HEAD: Normocephalic. EYES: No scleral icterus. No injection or drainage. NECK: Supple, trachea midline. No JVD or lymphadenopathy. LYMPHATIC: No adenopathy. CARDIOVASCULAR: Regular rate and rhythm without murmurs. RESPIRATORY: Breath sounds equal bilaterally. No accessory muscle use. GASTROINTESTINAL: Abdomen soft, tender in the mid abdomen, no rebound or rigidity. Positive bowel sounds. Drain is draining serosanguineous fluid. EXTREMITIES: No cyanosis, or edema. MUSCULOSKELETAL: Adequate muscle tone. NEUROLOGICAL: No obvious focal deficit. Awake, alert, and oriented x3. PSYCHIATRIC: Appropriate mood and affect; insight and judgment normal. Assessment/Plan (1) Liver mass, right lobe Code(s): R16.0 - Hepatomegaly, not elsewhere classified Status: Acute (2) Abdominal mass Code(s): R19.00 - Intra-abdominal and pelvic swelling, mass and lump, unspecified site Status: Acute - Plan 1. Large mesenteric mass. He presented with mid epigastric pain about [address] showed a 5.9 cm x 5.9 cm x 5.3 cm mass in the anterior mesentery. The mass appeared to be contiguous with adjacent small bowel loop; appeared to be separate from the small bowel, or colon. The mass is adjacent to small bowel loop, but appeared to be separate from the small bowel or colon. EGD showed multiple medium sized ulcers, but no masses. Biopsy showed reactive gastropathy and no neoplasm noted. Colonoscopy showed diverticular disease, but no masses. Biopsy of the liver mass showed a hemangioma. The patient had a biopsy of the mesenteric mass yesterday by Dr. Monahan; however, Dr. Monahan obtained copious pus and the drain was placed. June 17, 2018. There is less drainage noted in the drain. Patient still has abdominal pain. Dr. Kim is following and plan to repeat CT scan in another day or 2. At this point, it is unclear if this is an abscess or a necrotic tumor. June 18, 2018. The drain is now draining serosanguineous fluid. Patient still has abdominal pressure. Awaiting repeat CT of the abdomen for evaluation. 2. Irregular calcified hepatic mass; biopsy showing hemangioma. 3. Abdominal pain as above. His pain is controlled at this time. PLAN: 1. Continue antibiotic per primary team pending culture. 2. Surgery is following and the patient may need a surgical resection if he has a persistent mass. Await repeat CT of the abdomen. 3. Continue supportive care.
[2018-06-18] MEDS: Lisinopril 20 MG Tablet PO SCH (08:43)
[2018-06-18] MEDS: amLODIPine 5 MG Tablet PO SCH (08:44)
--- NOTE | 2018-06-18 09:10 | P.PNIM ---
Subjective Interval history: f/u; abdominal mass in no acute distress. says that abdominal pain is better although pain is getting worse with food. no fever. Physical Exam Vital signs: Vital Signs 06/17/18 12:00 06/17/18 16:00 06/17/18 20:00 Temperature 98.2 F 98.1 F 96.1 F L Pulse Rate 73 63 70 Respiratory Rate 16 17 20 Blood Pressure 119/69 117/68 136/77 Pulse Oximetry 94 L 98 98 06/18/18 00:00 06/18/18 04:00 Temperature 97.6 F 97.9 F Pulse Rate 55 L 56 L Respiratory Rate 17 17 Blood Pressure 130/72 129/70 Pulse Oximetry 95 95 Intake & Output 06/17/18 06/18/18 06/18/18 18:59 06:59 18:59 Intake Total 1700 / 1700 1340 / 1340 Output Total 20 / 20 50 / 50 Balance 1680 / 1680 1290 / 1290 Weight 83.1 kg Intake: IV 1100 / 1100 1100 / 1100 NS Inj 1,000 ML @ 100 mls/hr IV 1000 / 1000 1000 / 1000 .CONT .Q10H [facility] Rx#:[id number] Zosyn 3.375 GM Premix 50 ML @ 100 / 100 100 / 100 100 mls/hr IV.SIG Q6H [facility] Rx#: [id number] Oral 600 / 600 240 / 240 Output: Gastric Drainage 20 / 20 Left Lower Quadrant 20 / 20 Wound Drainage 50 / 50 Left Lower Abdomen 50 / 50 Other: # Voids 3 2 Date of Last Bowel Movement 06/17/18 # Bowel Movements 1 - Constitutional no acute distress - Routine Respiratory Exam Present: CTA bilaterally - Routine Cardiovascular Exam Present: RRR - Routine Abdominal Exam Present: soft - Routine Extremities Exam Comments: no pedal edema. - Routine Neurological Exam Present: alert, oriented X3 Results - Labs CBC & Chem 7: 06/17/18 05:05 06/17/18 05:05 Microbiology 06/15/18 08:50 Abscess - Abdominal Acid Fast Bacilli Smear - Final No acid fast bacilli seen 06/15/18 08:50 Abscess - Abdominal Gram Stain - Final 06/15/18 08:50 Abscess - Abdominal Wound Culture - Preliminary Beta Strep not A,B or D Assessment and Plan - Plan A/P - abdominal mass/ possible abscess- s/p biopsy/ drain placement on 06/15/18 continue IV Zosyn - fluid culture with beta-strep. will repeat the abdominal CT. general surgery and oncology following. continue with pain control. of note the patient had EGD/ colonoscopy/ liver biopsy two weeks ago which revealed nonbleeding gastric ulcers, sigmoid/descending colon diverticulum/ internal hemorrhoids and hemangioma respectively. -hypertension/ dyslipidemia/ hypothyroidism; resumed home meds. -DVT prophylaxis with SCD's Discharge Planning: home- pending clinical course/ work-up.
[2018-06-18] MEDS ORDERED: Diatrizoate Meglum/Diatrizoate Sod Liq 9 ML UDC PO ONE (09:19)
--- NOTE | 2018-06-18 16:04 | CT ---
EXAM DATE: 06/18/2018 2:59 PM EDT AGE/SEX: 57 years / Male INDICATIONS: Evaluate abdominal abscess drain. CLINICAL DATA: This is the patient's initial encounter. Patient reports that signs and symptoms have been present for 1 day and indicates a pain score of 3/10. MEDICAL/SURGICAL HISTORY: Hypertension. None. ORAL CONTRAST: Partial prescribed oral contrast ingested. RADIATION DOSE: 7.50 CTDI (mGy) COMPARISON: [facility], CT ABDOMEN & PELVIS W/O CONTRAST, 05/31/2018. . TECHNIQUE: Multiple contiguous axial images were obtained through the abdomen and pelvis following b olus infusion of 86 ml Omnipaque 350 (iohexol) nonionic water-soluble contrast as a single exam dos e. Partial prescribed oral contrast ingested. Using automated exposure control and adjustment of the mA and/or kV according to patient size, radiation dose was kept as low as reasonably achievable to o btain optimal diagnostic quality images. DICOM format image data is available electronically for rev iew and comparison. FINDINGS: Comparison is CT performed at the time of placement of abscess drain. Fluid collection is decreased f rom about 8.3 cm to 4.7 cm in transverse diameter. No new fluid collections are identified within the abdomen and pelvis. Lung bases are clear. Mild fatty liver. Partially calcified mass posterior right lobe liver stable si nce prior CT. No acute findings in the adrenals, kidneys or pancreas. CONCLUSION: 1. Complex fluid collection in the anterior mesentery has decreased in size since placement of drain age catheter. Measurements given above. No new fluid collections. Electronically signed by: Michael Spring MD 06/18/2018 4:02 PM EDT
[2018-06-19] MEDS: Piperacil/Tazo 3.375 GM Premix 50 ML IV.SIG SCH ×4 (01:48→20:39)
[2018-06-19] MEDS: Levothyroxine 75 MCG Tablet PO SCH (06:12)
--- NOTE | 2018-06-19 07:24 | P.PNGS ---
Subjective Interval history: Pain is still present in left abdomen but improving. He is now tolerating moderate amt of solid food. Drain output decreasing. Physical Exam Vital signs: Vital Signs 06/18/18 08:00 06/18/18 12:00 06/18/18 16:00 Temperature 98.2 F 97.9 F 98 F Pulse Rate 63 63 74 Respiratory Rate 18 16 18 Blood Pressure 144/85 H 135/69 125/87 Pulse Oximetry 97 97 99 06/18/18 20:00 06/19/18 00:00 06/19/18 04:00 Temperature 98.3 F 97.0 F L 97.4 F L Pulse Rate 78 68 69 Respiratory Rate 18 16 18 Blood Pressure 136/89 137/82 137/83 Pulse Oximetry 98 98 98 Intake & Output 06/18/18 06/19/18 06/19/18 18:59 06:59 18:59 Intake Total 2059 / 2059 1100 / 1100 Output Total 10 / Balance 8 / 204 1090 / 1090 Intake: IV 1100 / 1100 1100 / 1100 NS Inj 1,000 ML @ 100 mls/hr IV 1000 / 1000 1000 / 1000 .CONT .Q10H [facility] Rx#:[id number] Zosyn 3.375 GM Premix 50 ML @ 100 / 100 100 / 100 100 mls/hr IV.SIG Q6H [facility] Rx#: [id number] Oral 960 / 960 Output: Gastric Drainage Left Lower Quadrant 10 Wound Drainage Left Lower Abdomen Other: # Voids 4 Date of Last Bowel Movement 06/18/18 # Bowel Movements 2 Narrative: No distress Abd: soft, small reducible umbilical hernia, moderate left side ttp, drain with low amt purulent output Results - Labs 06/17/18 05:05 06/17/18 05:05 - Imaging Imaging: ITS Impressions Abscess Drainage CT 06/15/18 00:00 CONCLUSION: 1. Uncomplicated CT guided drainage. 2. The lesion in the abdominal cavity may simply represent abdominal abscess. It is also possible this represents malignancy which is rotated into the bowel and formed an abscess. Abdomen/Pelvis CT 06/18/18 00:00 CONCLUSION: 1. Complex fluid collection in the anterior mesentery has decreased in size since placement of drainage catheter. Measurements given above. No new fluid collections. Assessment and Plan - Assessment (1) Abdominal mass Code(s): R19.00 - Intra-abdominal and pelvic swelling, mass and lump, unspecified site Status: Acute - Plan CT a/p shows decrease in size of abscess/mass. Likely this is an abscess of unclear etiology and will treat as such. When drain output ceases as long as he continues to clinically improve will plan to remove drain and dc with oral antibiotics, which may be Friday or Friday.
--- NOTE | 2018-06-19 07:36 | P.PNONC ---
Subjective Interval history: Patient is feeling better. The abdominal pain has improved. He remains afebrile. Drain output has decreased. Objective Vital Signs/Intake & Output: Vital Signs 06/18/18 08:00 06/18/18 12:00 06/18/18 16:00 Temperature 98.2 F 97.9 F 98 F Pulse Rate 63 63 74 Respiratory Rate 18 16 18 Blood Pressure 144/85 H 135/69 125/87 Pulse Oximetry 97 97 99 06/18/18 20:00 06/19/18 00:00 06/19/18 04:00 Temperature 98.3 F 97.0 F L 97.4 F L Pulse Rate 78 68 69 Respiratory Rate 18 16 18 Blood Pressure 136/89 137/82 137/83 Pulse Oximetry 98 98 98 Intake & Output 06/18/18 06/19/18 06/19/18 18:59 06:59 18:59 Intake Total 2059 / 2059 1100 / 1100 Output Total 10 / Balance 2048 / 2048 1090 / 1090 Intake: IV 1100 / 1100 1100 / 1100 NS Inj 1,000 ML @ 100 mls/hr IV 1000 / 1000 1000 / 1000 .CONT .Q10H [facility] Rx#:[id number] Zosyn 3.375 GM Premix 50 ML @ 100 / 100 100 / 100 100 mls/hr IV.SIG Q6H [facility] Rx#: [id number] Oral 960 / 960 Output: Gastric Drainage 10 Left Lower Quadrant 10 Wound Drainage Left Lower Abdomen Other: # Voids 4 Date of Last Bowel Movement 06/18/18 # Bowel Movements 2 Result Diagrams: 06/17/18 05:05 06/17/18 05:05 Culture Results: Microbiology 06/15/18 08:50 Gram Stain - Final Abscess - Abdominal Wound Culture - Final Beta Strep not A,B or D Eikenella corrodens anaerobic gram negative rods 06/15/18 08:50 Acid Fast Bacilli Smear - Final Abscess - Abdominal No acid fast bacilli seen 06/15/18 08:50 Fungal Smear - Final Abscess - Abdominal No fungal elements seen Imaging Studies: Impressions Abdomen/Pelvis CT 06/18/18 00:00 CONCLUSION: 1. Complex fluid collection in the anterior mesentery has decreased in size since placement of drainage catheter. Measurements given above. No new fluid collections. Medications: Active Medications Generic Name Dose Route Start Last Admin Trade Name Freq PRN Reason Stop Dose Admin Hydrocodone Bitart/Acetaminophen 1 tab 06/15/18 13:10 06/19/18 06:12 [place] 5/325 PO 1 tab Q4H PRN Administration pain 1-5 Hydrocodone Bitart/Acetaminophen 2 tab 06/15/18 13:28 06/18/18 22:16 [place] 5/325 PO 2 tab Q4H PRN Administration pain 6-10 Amlodipine Besylate 5 mg 06/16/18 09:00 06/18/18 08:44 Norvasc PO 5 mg DAILY [facility] Administration Atorvastatin Calcium 10 mg 06/16/18 09:00 06/18/18 08:43 Lipitor PO 10 mg DAILY [facility] Administration Piperacillin/Tazobactam/Dextrose 50 mls @ 100 mls/hr 06/15/18 14:00 06/19/18 04:22 Zosyn 3.375 Gm Premix IV.SIG Infused Q6H [facility] Infusion Levothyroxine Sodium 75 mcg 06/16/18 06:00 06/19/18 06:12 Synthroid PO 75 mcg DAILY@0600 [facility] Administration Lisinopril 20 mg 06/16/18 09:00 06/18/18 08:43 Prinivil PO 20 mg DAILY [facility] Administration Ondansetron HCl 4 mg 06/15/18 13:24 06/18/18 13:28 Zofran Inj IV.PUSH 4 mg Q8H PRN Administration nausea Pantoprazole Sodium 40 mg 06/15/18 21:00 06/18/18 21:16 Protonix PO 40 mg BID [facility] Administration Objective Remarks: GENERAL: Well-nourished, well-developed patient. SKIN: Warm and dry. HEAD: Normocephalic. EYES: No scleral icterus. No injection or drainage. NECK: Supple, trachea midline. No JVD or lymphadenopathy. LYMPHATIC: No adenopathy. CARDIOVASCULAR: Regular rate and rhythm without murmurs. RESPIRATORY: Breath sounds equal bilaterally. No accessory muscle use. GASTROINTESTINAL: Abdomen soft, tender in the mid abdomen but improved. nondistended. EXTREMITIES: No cyanosis, or edema. MUSCULOSKELETAL: Adequate muscle tone. NEUROLOGICAL: No obvious focal deficit. Awake, alert, and oriented x3. PSYCHIATRIC: Appropriate mood and affect; insight and judgment normal. Assessment/Plan (1) Liver mass, right lobe Code(s): R16.0 - Hepatomegaly, not elsewhere classified Status: Acute (2) Abdominal mass Code(s): R19.00 - Intra-abdominal and pelvic swelling, mass and lump, unspecified site Status: Acute - Plan 1. Large mesenteric mass. He presented with mid epigastric pain about [address] showed a 5.9 cm x 5.9 cm x 5.3 cm mass in the anterior mesentery. The mass appeared to be contiguous with adjacent small bowel loop; appeared to be separate from the small bowel, or colon. The mass is adjacent to small bowel loop, but appeared to be separate from the small bowel or colon. EGD showed multiple medium sized ulcers, but no masses. Biopsy showed reactive gastropathy and no neoplasm noted. Colonoscopy showed diverticular disease, but no masses. Biopsy of the liver mass showed a hemangioma. The patient had a biopsy of the mesenteric mass yesterday by Dr. Monahan; however, Dr. Monahan obtained copious pus and the drain was placed. June 17, 2018. There is less drainage noted in the drain. Patient still has abdominal pain. Dr. Kim is following and plan to repeat CT scan in another day or 2. At this point, it is unclear if this is an abscess or a necrotic tumor. June 18, 2018. The drain is now draining serosanguineous fluid. Patient still has abdominal pressure. Awaiting repeat CT of the abdomen for evaluation. June 11, 2018. Review of CT scan with patient. The abdominal complex fluid collection/mass has decreased From 8.3 cm to 4.7 cm. This does not appear to be malignant mass. Continue antibiotics and management per surgery. 2. Irregular calcified hepatic mass; biopsy showing hemangioma. 3. Abdominal pain as above. His pain is controlled at this time. PLAN: 1. Review of CT scan with patient. 2. Continue antibiotic per primary team and surgery. 3. Management of abdominal abscess per surgery.
[2018-06-19] MEDS: Lisinopril 20 MG Tablet PO SCH (08:26)
[2018-06-19] MEDS: amLODIPine 5 MG Tablet PO SCH (08:27)
--- NOTE | 2018-06-19 10:55 | P.PNIM ---
Subjective Interval history: f/u; abdominal abscess looks and feels better today. abdominal pain is better. no fever,nausea or emesis. Physical Exam Vital signs: Vital Signs 06/18/18 12:00 06/18/18 16:00 06/18/18 20:00 Temperature 97.9 F 98 F 98.3 F Pulse Rate 63 74 78 Respiratory Rate 16 18 18 Blood Pressure 135/69 125/87 136/89 Pulse Oximetry 97 99 98 06/19/18 00:00 06/19/18 04:00 06/19/18 08:00 Temperature 97.0 F L 97.4 F L 98.4 F Pulse Rate 68 69 62 Respiratory Rate 16 18 16 Blood Pressure 137/82 137/83 134/70 Pulse Oximetry 98 98 97 Intake & Output 06/18/18 06/19/18 06/19/18 18:59 06:59 18:59 Intake Total 2059 / 2059 1100 / 1100 1050 / 1050 Output Total 10 Balance 2047 / 2047 1090 / 1090 1050 / 1050 Intake: IV 1100 / 1100 1100 / 1100 1050 / 1050 NS Inj 1,000 ML @ 100 mls/hr IV 1000 / 1000 1000 / 1000 1000 / 1000 .CONT .Q10H [facility] Rx#:[id number] Zosyn 3.375 GM Premix 50 ML @ 100 / 100 100 / 100 50 / 50 100 mls/hr IV.SIG Q6H [facility] Rx#: [id number] Oral 960 / 960 Output: Gastric Drainage Left Lower Quadrant 10 Wound Drainage Left Lower Abdomen Other: # Voids 4 Date of Last Bowel Movement 06/18/18 # Bowel Movements 2 - Constitutional no acute distress - Routine Respiratory Exam Present: CTA bilaterally - Routine Cardiovascular Exam Present: RRR - Routine Abdominal Exam Present: soft - Routine Extremities Exam Comments: no pedal edema. - Routine Neurological Exam Present: alert, oriented X3 Results - Labs CBC & Chem 7: 06/17/18 05:05 06/17/18 05:05 Microbiology 06/15/18 08:50 Abscess - Abdominal Gram Stain - Final 06/15/18 08:50 Abscess - Abdominal Wound Culture - Final Beta Strep not A,B or D Eikenella corrodens anaerobic gram negative rods - Imaging Impressions Abdomen/Pelvis CT 06/18/18 00:00 CONCLUSION: 1. Complex fluid collection in the anterior mesentery has decreased in size since placement of drainage catheter. Measurements given above. No new fluid collections. Assessment and Plan - Plan A/P - abdominal mass/ possible abscess- s/p biopsy/ drain placement on 06/15/18 continue IV Zosyn - fluid culture with beta-strep. repeated abdominal CT with decreased size of the abscess. general surgery and oncology following. continue with pain control. of note the patient had EGD/ colonoscopy/ liver biopsy two weeks ago which revealed nonbleeding gastric ulcers, sigmoid/descending colon diverticulum/ internal hemorrhoids and hemangioma respectively. -hypertension/ dyslipidemia/ hypothyroidism; resumed home meds. -DVT prophylaxis with SCD's Discharge Planning: home- within the next 2-3 days -when cleared by general surgery.
[2018-06-20] MEDS: Piperacil/Tazo 3.375 GM Premix 50 ML IV.SIG SCH ×4 (03:09→20:50)
[2018-06-20] MEDS: Levothyroxine 75 MCG Tablet PO SCH (05:58)
--- NOTE | 2018-06-20 08:50 | P.PNIM ---
Subjective Interval history: f/u; abdominal abscess in no acute distress. looks and feels much better. now has minimal pain to the site of the drain. no fever or new complaints. Physical Exam Vital signs: Vital Signs 06/19/18 12:00 06/19/18 16:00 06/19/18 16:18 Temperature 98.4 F 98.2 F Pulse Rate 62 64 64 Respiratory Rate 16 16 Blood Pressure 116/68 125/73 Pulse Oximetry 98 97 06/19/18 20:00 06/20/18 00:00 06/20/18 04:00 Temperature 98.3 F 98.2 F 98.2 F Pulse Rate 68 73 62 Respiratory Rate 18 18 18 Blood Pressure 125/74 137/69 130/76 Pulse Oximetry 96 96 97 Intake & Output 06/19/18 06/20/18 06/20/18 18:59 06:59 18:59 Intake Total 1939 / 1939 100 / 100 Output Total 8 / 8 Balance 193 / 1929 92 / 92 Weight 83.2 kg Intake: IV 1100 / 1100 100 / 100 NS Inj 1,000 ML @ 100 mls/hr IV 1000 / 1000 .CONT .Q10H [facility] Rx#:[id number] Zosyn 3.375 GM Premix 50 ML @ 100 / 100 100 / 100 100 mls/hr IV.SIG Q6H [facility] Rx#: [id number] Oral 840 / 840 Output: Gastric Drainage 8 / 8 Left Lower Quadrant 10 8 / 8 Other: # Voids 4 # Bowel Movements 1 - Constitutional no acute distress - Routine Respiratory Exam Present: CTA bilaterally - Routine Cardiovascular Exam Present: RRR - Routine Abdominal Exam Present: soft - Routine Extremities Exam Comments: no pedal edema. - Routine Neurological Exam Present: alert, oriented X3 Results - Labs CBC & Chem 7: 06/17/18 05:05 06/17/18 05:05 Assessment and Plan - Plan A/P - abdominal mass/ possible abscess- s/p drain placement on 06/15/18- clinically improving. continue IV Zosyn - repeated abdominal CT with decreased size of the abscess. general surgery and oncology following. continue with pain control. of note the patient had EGD/ colonoscopy/ liver biopsy two weeks ago which revealed nonbleeding gastric ulcers, sigmoid/descending colon diverticulum/ internal hemorrhoids and hemangioma respectively. -hypertension/ dyslipidemia/ hypothyroidism; resumed home meds. -DVT prophylaxis with SCD's Discharge Planning: home- within the next 1-2 days -when cleared by general surgery.
[2018-06-20] MEDS: amLODIPine 5 MG Tablet PO SCH (09:57)
[2018-06-20] MEDS: Lisinopril 20 MG Tablet PO SCH (09:57)
[2018-06-21] MEDS: Piperacil/Tazo 3.375 GM Premix 50 ML IV.SIG SCH ×4 (03:16→20:10)
[2018-06-21] MEDS: Levothyroxine 75 MCG Tablet PO SCH (05:04)
[2018-06-21] MEDS: Lisinopril 20 MG Tablet PO SCH (08:50)
[2018-06-21] MEDS: amLODIPine 5 MG Tablet PO SCH (08:51)
--- NOTE | 2018-06-21 09:25 | P.PNIM ---
Subjective Interval history: f/u; abdominal abscess in no acute distress. abdominal pain is much better. no other complaints. no fever. Physical Exam Vital signs: Vital Signs 06/20/18 12:00 06/20/18 16:00 06/20/18 20:00 Temperature 99.2 F 98.1 F 97.9 F Pulse Rate 72 71 63 Respiratory Rate 16 16 21 Blood Pressure 125/71 151/76 H 148/76 H Pulse Oximetry 97 99 100 06/21/18 00:00 06/21/18 04:00 06/21/18 08:00 Temperature 97.9 F 98.1 F 98.1 F Pulse Rate 69 60 84 Respiratory Rate 18 17 16 Blood Pressure 117/61 124/70 122/67 Pulse Oximetry 98 98 98 Intake & Output 06/20/18 06/21/18 06/21/18 18:59 06:59 18:59 Intake Total 620 / 620 340 / 340 Output Total 2 / 2 0 / 0 Balance 618 / 618 340 / 340 Intake: IV 100 / 100 100 / 100 Zosyn 3.375 GM Premix 50 ML @ 100 / 100 100 / 100 100 mls/hr IV.SIG Q6H [facility] Rx#: [id number] Oral 520 / 520 240 / 240 Output: Gastric Drainage 2 / 2 0 / 0 Left Lower Quadrant 2 / 2 0 / 0 Other: # Voids 6 2 Date of Last Bowel Movement 06/18/18 # Bowel Movements 0 - Constitutional no acute distress - Routine Respiratory Exam Present: CTA bilaterally - Routine Cardiovascular Exam Present: RRR - Routine Abdominal Exam Present: soft - Routine Extremities Exam Comments: no pedal edema. - Routine Neurological Exam Present: alert, oriented X3 Results - Labs CBC & Chem 7: 06/17/18 05:05 06/17/18 05:05 Assessment and Plan - Plan A/P - abdominal mass/ possible abscess- s/p drain placement on 06/15/18- clinically improving. continue IV Zosyn - repeated abdominal CT with decreased size of the abscess. general surgery and oncology following. continue with pain control. of note the patient had EGD/ colonoscopy/ liver biopsy two weeks ago which revealed nonbleeding gastric ulcers, sigmoid/descending colon diverticulum/ internal hemorrhoids and hemangioma respectively. -hypertension/ dyslipidemia/ hypothyroidism; resumed home meds. -DVT prophylaxis with SCD's Discharge Planning: home- within the next 24 hrs -when drain has been removed and cleared by general surgery.
--- NOTE | 2018-06-21 15:58 | P.PNGS ---
Subjective Interval history: He is tolerating diet now, having bowel movts, and pain is much improved. Physical Exam Vital signs: Vital Signs 06/20/18 16:00 06/20/18 20:00 06/21/18 00:00 Temperature 98.1 F 97.9 F 97.9 F Pulse Rate 71 63 69 Respiratory Rate 16 21 18 Blood Pressure 151/76 H 148/76 H 117/61 Pulse Oximetry 99 100 98 06/21/18 04:00 06/21/18 08:00 06/21/18 12:00 Temperature 98.1 F 98.1 F 98.4 F Pulse Rate 60 84 77 Respiratory Rate 17 16 16 Blood Pressure 124/70 122/67 119/71 Pulse Oximetry 98 98 98 Intake & Output 06/20/18 06/21/18 06/21/18 18:59 06:59 18:59 Intake Total 620 / 620 340 / 340 100 / 100 Output Total 2 / 2 0 / 0 Balance 618 / 618 340 / 340 100 / 100 Intake: IV 100 / 100 100 / 100 100 / 100 Zosyn 3.375 GM Premix 50 ML @ 100 / 100 100 / 100 100 / 100 100 mls/hr IV.SIG Q6H BERNARDINO Rx#: [id number] Oral 520 / 520 240 / 240 Output: Gastric Drainage 2 / 2 0 / 0 Left Lower Quadrant 2 / 2 0 / 0 Other: # Voids 6 2 Date of Last Bowel Movement 06/18/18 # Bowel Movements 0 Narrative: NAD Abd: drain min purulent output, soft, min ttp Results - Labs 06/17/18 05:05 06/17/18 05:05 - Imaging Imaging: ITS Impressions Abscess Drainage CT 06/15/18 00:00 CONCLUSION: 1. Uncomplicated CT guided drainage. 2. The lesion in the abdominal cavity may simply represent abdominal abscess. It is also possible this represents malignancy which is rotated into the bowel and formed an abscess. Abdomen/Pelvis CT 06/18/18 00:00 CONCLUSION: 1. Complex fluid collection in the anterior mesentery has decreased in size since placement of drainage catheter. Measurements given above. No new fluid collections. Assessment and Plan - Assessment (1) Abdominal mass Code(s): R19.00 - Intra-abdominal and pelvic swelling, mass and lump, unspecified site Status: Acute - Plan He is symptomatically improving with minimal drainage. Clear for d/c home tomorrow morning from my standpoint on augmentin x 10 days. F/u with me in 10 days. Will need to request radiology nurse to remove drain tomorrow prior to discharge.
[2018-06-21 21:06] VITALS: O2SAT 97
[2018-06-22] MEDS: Piperacil/Tazo 3.375 GM Premix 50 ML IV.SIG SCH ×2 (01:25→08:55)
[2018-06-22] MEDS: Levothyroxine 75 MCG Tablet PO SCH (05:08)
[2018-06-22 05:32] VITALS: RESP 16
--- NOTE | 2018-06-22 07:37 | P.PNONC ---
Subjective Interval history: Feeling better. Denies any abdominal pain. No more drainage. Eager to go home. Has good bowel movement. Objective Vital Signs/Intake & Output: Vital Signs 06/21/18 08:00 06/21/18 12:00 06/21/18 16:00 Temperature 98.1 F 98.4 F 98.3 F Pulse Rate 84 77 72 Respiratory Rate 16 16 16 Blood Pressure 122/67 119/71 121/71 Pulse Oximetry 98 98 95 06/21/18 20:00 06/22/18 00:00 06/22/18 04:00 Temperature 99.2 F 98.4 F 97.7 F Pulse Rate 77 62 57 L Respiratory Rate 18 18 16 Blood Pressure 124/75 113/66 126/69 Pulse Oximetry 97 97 97 Intake & Output 06/21/18 06/22/18 06/22/18 18:59 06:59 18:59 Intake Total 100 / 100 100 / 100 Output Total 1 / 1 0 / 0 Balance 99 / 99 100 / 100 Weight 83.7 kg Intake: IV 100 / 100 100 / 100 Zosyn 3.375 GM Premix 50 ML @ 100 / 100 100 / 100 100 mls/hr IV.SIG Q6H BERNARDINO Rx#: [id number] Output: Stool 1 / 1 Gastric Drainage 0 / 0 Left Lower Quadrant 0 / 0 Other: # Voids 4 Date of Last Bowel Movement 06/21/18 # Bowel Movements 1 Result Diagrams: 06/17/18 05:05 06/17/18 05:05 Medications: Active Medications Generic Name Dose Route Start Last Admin Trade Name Freq PRN Reason Stop Dose Admin Hydrocodone Bitart/Acetaminophen 1 tab 06/15/18 13:10 06/19/18 13:54 [place] 5/325 PO 1 tab Q4H PRN Administration pain 1-5 Hydrocodone Bitart/Acetaminophen 2 tab 06/15/18 13:28 06/22/18 05:10 [place] 5/325 PO 2 tab Q4H PRN Administration pain 6-10 Amlodipine Besylate 5 mg 06/16/18 09:00 06/21/18 08:51 Norvasc PO 5 mg DAILY BERNARDINO Administration Atorvastatin Calcium 10 mg 06/16/18 09:00 06/21/18 08:51 Lipitor PO 10 mg DAILY BERNARDINO Administration Piperacillin/Tazobactam/Dextrose 50 mls @ 100 mls/hr 06/15/18 14:00 06/22/18 02:08 Zosyn 3.375 Gm Premix IV.SIG Infused Q6H BERNARDINO Infusion Levothyroxine Sodium 75 mcg 06/16/18 06:00 06/22/18 05:08 Synthroid PO 75 mcg DAILY@0600 BERNARDINO Administration Lisinopril 20 mg 06/16/18 09:00 06/21/18 08:50 Prinivil PO 20 mg DAILY BERNARDINO Administration Ondansetron HCl 4 mg 06/15/18 13:24 06/18/18 13:28 Zofran Inj IV.PUSH 4 mg Q8H PRN Administration nausea Pantoprazole Sodium 40 mg 06/15/18 21:00 06/21/18 20:11 Protonix PO 40 mg BID BERNARDINO Administration Objective Remarks: GENERAL: Well-nourished, well-developed patient. SKIN: Warm and dry. HEAD: Normocephalic. EYES: No scleral icterus. No injection or drainage. NECK: Supple, trachea midline. No JVD or lymphadenopathy. LYMPHATIC: No adenopathy. CARDIOVASCULAR: Regular rate and rhythm without murmurs. RESPIRATORY: Breath sounds equal bilaterally. No accessory muscle use. GASTROINTESTINAL: Abdomen soft, non-tender, nondistended. Drain in place with no drainage. EXTREMITIES: No cyanosis, or edema. MUSCULOSKELETAL: Adequate muscle tone. NEUROLOGICAL: No obvious focal deficit. Awake, alert, and oriented x3. PSYCHIATRIC: Appropriate mood and affect; insight and judgment normal. Assessment/Plan (1) Liver mass, right lobe Code(s): R16.0 - Status: Acute (2) Abdominal mass Code(s): R19.00 - Status: Acute - Plan 1. Large mesenteric mass. He presented with mid epigastric pain about [address] showed a 5.9 cm x 5.9 cm x 5.3 cm mass in the anterior mesentery. The mass appeared to be contiguous with adjacent small bowel loop; appeared to be separate from the small bowel, or colon. The mass is adjacent to small bowel loop, but appeared to be separate from the small bowel or colon. EGD showed multiple medium sized ulcers, but no masses. Biopsy showed reactive gastropathy and no neoplasm noted. Colonoscopy showed diverticular disease, but no masses. Biopsy of the liver mass showed a hemangioma. The patient had a biopsy of the mesenteric mass yesterday by Dr. Monahan; however, Dr. Monahan obtained copious pus and the drain was placed. June 17, 2018. There is less drainage noted in the drain. Patient still has abdominal pain. Dr. Kim is following and plan to repeat CT scan in another day or 2. At this point, it is unclear if this is an abscess or a necrotic tumor. June 18, 2018. The drain is now draining serosanguineous fluid. Patient still has abdominal pressure. Awaiting repeat CT of the abdomen for evaluation. June 11, 2018. Review of CT scan with patient. The abdominal complex fluid collection/mass has decreased From 8.3 cm to 4.7 cm. This does not appear to be malignant mass. Continue antibiotics and management per surgery. June 22, 2018. Patient's abdominal pain has resolved. There is no drainage noted in the drain. He is going to be discharged today in follow-up with Dr. Kim. This does not appear to be neoplasm. 2. Irregular calcified hepatic mass; biopsy showing hemangioma. PLAN: 1. Follow-up with surgery. I told him to call my office for follow-up as needed. 2. Continue antibiotic per primary team and surgery.
[2018-06-22 08:29] VITALS: BP 147/74; PULSE 67; TEMP 98
[2018-06-22] MEDS: amLODIPine 5 MG Tablet PO SCH (08:55)
[2018-06-22] MEDS: Lisinopril 20 MG Tablet PO SCH (08:55)
--- NOTE | 2018-06-22 10:59 | P.PNIM ---
Subjective Interval history: Patient says he is feeling right. Denies any chest pain shortness of breath. reports abdominal pain has resolved. Physical Exam Vital signs: Vital Signs 06/21/18 12:00 06/21/18 16:00 06/21/18 20:00 Temperature 98.4 F 98.3 F 99.2 F Pulse Rate 77 72 77 Respiratory Rate 16 16 18 Blood Pressure 119/71 121/71 124/75 Pulse Oximetry 98 95 97 06/22/18 00:00 06/22/18 04:00 06/22/18 08:00 Temperature 98.4 F 97.7 F 98.0 F Pulse Rate 62 57 L 67 Respiratory Rate 18 16 16 Blood Pressure 113/66 126/69 147/74 H Pulse Oximetry 97 97 97 Intake & Output 06/21/18 06/22/18 06/22/18 18:59 06:59 18:59 Intake Total 100 / 100 100 / 100 Output Total 1 / 1 0 / 0 Balance 99 / 99 100 / 100 Weight 83.7 kg Intake: IV 100 / 100 100 / 100 Zosyn 3.375 GM Premix 50 ML @ 100 / 100 100 / 100 100 mls/hr IV.SIG Q6H [facility]INO Rx#: [id number] Output: Stool 1 / 1 Gastric Drainage 0 / 0 Left Lower Quadrant 0 / 0 Other: # Voids 4 Date of Last Bowel Movement 06/21/18 # Bowel Movements 1 Narrative: GENERAL: Patient sitting up in chair. Appears comfortable. Alert and oriented x3. SKIN: Warm and dry. HEAD: Normocephalic. EYES: No scleral icterus. No injection or drainage. NECK: Supple, trachea midline. No JVD or lymphadenopathy. CARDIOVASCULAR: Regular rate and rhythm without murmurs, gallops, or rubs. RESPIRATORY: Breath sounds equal bilaterally. No accessory muscle use. GASTROINTESTINAL: Abdomen soft, non-tender, nondistended. Drain in place. MUSCULOSKELETAL: No cyanosis, or edema. BACK: Nontender without obvious deformity. No CVA tenderness. Results - Labs CBC & Chem 7: 06/17/18 05:05 06/17/18 05:05 Assessment and Plan - Plan A/P //abdominal mass/ possible abscess- s/p drain placement on 06/15/18- clinically improving. continue IV Zosyn - repeated abdominal CT with decreased size of the abscess. general surgery and oncology following. continue with pain control. of note the patient had EGD/ colonoscopy/ liver biopsy two weeks ago which revealed nonbleeding gastric ulcers, sigmoid/descending colon diverticulum/ internal hemorrhoids and hemangioma respectively. = 06/22. Discussed with infectious disease. Complete course of Augmentin. Drain removed by IR. Follow with general surgery as outpatient. //hypertension/ dyslipidemia/ hypothyroidism; resumed home meds. //DVT prophylaxis with SCD's Discussed Condition With: Patient, nurse, infectious disease specialist. Discharge Planning: Discharge home. Follow-up with general surgery as outpatient
--- NOTE | 2018-06-22 11:01 | P.DS ---
Date of admission: 06/15/18 14:44 Primary care physician: UNKNOWN Brief History from admission: patient is a 57 y/o male with history of hypertension, hypothyroidism, dyslipidemia, who underwent abdominal mass biopsy earlier today. he says that he 's had generalized abdominal pain for almost two weeks. he 's had on and off nausea but with no emesis. he says that eating makes the pain worse. he's lost about nine pounds within that time frame.he denies fever but had chills and night sweats. he was admitted to this hospital about ten days ago and was evaluated by GI and underwent EGD/colonoscopy and liver biopsy. he was found to have non-bleeding gastric ulcers and pathology of the liver biopsy showed hemangioma. he was found to have a mesentric mass for which he was seen by last week and was sent to IR today for the biopsy. as per d/w today, at the time of the biopsy ' pus was drained from the mass and a drain was placed in'. DS: Medications - Discharge Medications Prescriptions: amoxicillin-pot clavulanate [Augmentin] 1 tab PO Q12H #14 tab DS: Summary Hospital Course: Patient found to have abdominal mass, abscess on CT as below. General surgery was consulted, drain was placed on 06/15, with cultures growing out several organisms. Infectious disease was consulted, and patient will continue on Augmentin to complete treatment course. Drain was removed. Patient will need to follow-up with general surgery as outpatient. Patient conveys understanding.. For problem based summary from most recent progress note, please see below. //abdominal mass/ possible abscess- s/p drain placement on 06/15/18- clinically improving. continue IV Zosyn - repeated abdominal CT with decreased size of the abscess. general surgery and oncology following. continue with pain control. of note the patient had EGD/ colonoscopy/ liver biopsy two weeks ago which revealed nonbleeding gastric ulcers, sigmoid/descending colon diverticulum/ internal hemorrhoids and hemangioma respectively. = 06/22. Discussed with infectious disease. Complete course of Augmentin. Drain removed by IR. Follow with general surgery as outpatient. //hypertension/ dyslipidemia/ hypothyroidism; resumed home meds. //DVT prophylaxis with SCD's Discussed Condition With: Patient, nurse, infectious disease specialist. Discharge Planning: Discharge home. Follow-up with general surgery as outpatient - Time Spent with Patient Total time spent providing and/or coordinating discharge services: Greater than 30 minutes - Quality: VTE Deep Vein Thrombosis/Pulmonary Embolism Present on Admission: No Exam Vital signs: Vital Signs 06/21/18 12:00 06/21/18 16:00 06/21/18 20:00 Temperature 98.4 F 98.3 F 99.2 F Pulse Rate 77 72 77 Respiratory Rate 16 16 18 Blood Pressure 119/71 121/71 124/75 Pulse Oximetry 98 95 97 06/22/18 00:00 06/22/18 04:00 06/22/18 08:00 Temperature 98.4 F 97.7 F 98.0 F Pulse Rate 62 57 L 67 Respiratory Rate 18 16 16 Blood Pressure 113/66 126/69 147/74 H Pulse Oximetry 97 97 97 Intake & Output 06/21/18 06/22/18 06/22/18 18:59 06:59 18:59 Intake Total 100 / 100 100 / 100 50 / 50 Output Total 1 / 1 0 / 0 Balance 99 / 99 100 / 100 50 / 50 Weight 83.7 kg Intake: IV 100 / 100 100 / 100 50 / 50 Zosyn 3.375 GM Premix 50 ML @ 100 / 100 100 / 100 50 / 50 100 mls/hr IV.SIG Q6H BERNARDINO Rx#: [id number] Output: Stool 1 / 1 Gastric Drainage 0 / 0 Left Lower Quadrant 0 / 0 Other: # Voids 4 Date of Last Bowel Movement 06/21/18 # Bowel Movements 1 Results Procedures completed during hospitalization: IR drain placement, and removal. Please see reports - Impressions ITS Impressions Abscess Drainage CT 06/15/18 00:00 CONCLUSION: 1. Uncomplicated CT guided drainage. 2. The lesion in the abdominal cavity may simply represent abdominal abscess. It is also possible this represents malignancy which is rotated into the bowel and formed an abscess. Abdomen/Pelvis CT 06/18/18 00:00 CONCLUSION: 1. Complex fluid collection in the anterior mesentery has decreased in size since placement of drainage catheter. Measurements given above. No new fluid collections. Discharge Plan - Discharge Disposition Patient Disposition: Discharge Home - Discharge Condition Condition: Good - Discharge Order Discharge Orders: Discharge Order (Routine); Ordered 06/22/18 Ordered By: Julian Mcpherson - Discharge Details Anticipated Discharge Date: 06/22/18 - Physicians Team Primary Care Provider: UNKNOWN, Attending Provider: Julian Mcpherson Other Providers: Levar Kim MD ; Marlena Singer MD ; Donato Araiza MD ; Latest Medical - Rxs /Orders / Referrals /Forms Prescriptions: New amoxicillin-pot clavulanate [Augmentin] 875-125 mg Tablet 1 tab PO Q12H Qty: 14 RF: 0 Continue amlodipine-benazepril 5-20 mg Capsule 1 cap PO DAILY atorvastatin 10 mg Tablet 10 mg PO DAILY flaxseed oil 1,000 mg Capsule 1,000 mg PO HS glucosamine sulfate [Glucosamine] 500 mg Tablet 1,500 mg PO HS hydrocodone-acetaminophen 10-325 mg Tablet 1 tab PO Q8HR PRN (Reason: Acute Pain) Qty: 21 RF: 0 levothyroxine 75 mcg Tablet 75 mcg PO DAILY pantoprazole 40 mg Tablet,Delayed Release (Dr/Ec) 40 mg PO BID Qty: 60 RF: 0 testosterone cypionate 200 mg/mL Oil 200 mg IM Q2W Vitamin B-12 500 MG 500 mg PO DAILY Discontinued minocycline 100 mg Capsule 100 mg PO BID Referrals: Levar Kim MD [GENERAL SURGERY] - 07/02/18 1:40 pm (F/u with me in ten days. ) UNKNOWN, [Primary Care Provider] - See Instructions Forms: Work Release/Restrictions - Discharge Instructions Patient Printed Instructions: Amoxicillin/Clavulanate Potassium (By mouth), Abscess Incision and Drainage (DC) - Post Discharge Care Plan Care Plan Goals: Your Health Problems: Goals to Promote Your Health: * To prevent worsening of your condition * To maintain your health at the optimal level Directions to Meet Your Goals: * Take your medications as prescribed * Follow your dietary instruction * Follow activity as directed * Keep your appointments as scheduled * Take your immunizations and boosters as scheduled * If your symptoms worsen call your PCP * If no PCP go to Urgent Care or Emergency Room Smoking is dangerous to your health. Avoid second hand smoke. You may reach the 24-hour crisis hotline for domestic abuse at 1-827-096- 5592.Your Health Problems: Goals to Promote Your Health: * To prevent worsening of your condition * To maintain your health at the optimal level Directions to Meet Your Goals: * Take your medications as prescribed * Follow your dietary instruction * Follow activity as directed * Keep your appointments as scheduled * Take your immunizations and boosters as scheduled * If your symptoms worsen call your PCP * If no PCP go to Urgent Care or Emergency Room Smoking is dangerous to your health. Avoid second hand smoke. You may reach the 24-hour crisis hotline for domestic abuse at .
== END 2018-06-22 10:50 | disposition home or self-care (01) ==
LOC: HRAD 06:10 → HRIP 06:23 → HSDI 14:44 → N04 14:49
PROVIDERS: ADMIT Internal Medicine; ATTEND Internal Medicine